=== PATIENT | male | born 1985 | race Caucasian/White ===

== ENCOUNTER → 2024-11-30 | Outpatient (CLI) | payer SELFPAY ==
[2024-11-30 17:50] LABS: Absolute Lymphocyte Count 2.89 X10^3/uL (0.83-4.51); Absolute Neutrophil Count 4.8 X10^3/uL (2.0-7.7); Basophil# 0.07 X10^3/uL; Basophil% 0.8 % (0-1); Eosinophil# 0.14 X10^3/uL; Eosinophils% 1.6 % (0-5); Hematocrit 44.6 % (40-54); Hemoglobin 14.9 g/dL (13.0-16.5); Lymphocyte # 2.89 X10^3/ul (0.83-4.51); Lymphocyte % 32.9 % (19-41); Mean Corp Hgb Conc 33.4 g/dL (32-36); Mean Corpuscular Hgb 28.7 pg (27.0-32.0); Mean Corpuscular Volume 85.9 fL (80-94); Mean Platelet Vol. 10.8 fl (6.2-12.0); Monocyte# 0.88 X10^3/uL; NRBC Flagged by Analyzer 0 % (0-5); Neutrophil # 4.76 X10^3/uL (2.7-7.7); Neutrophil % 54.2 % (47-70); Platelet Count 345 K/mm3 (150-450); RBC Distribution Width SD 37.7 fl (35.1-43.9); Red Blood Count 5.19 M/mm3 (4.6-6.2); White Blood Count 8.8 K/mm3 (4.4-11.0)
[2024-11-30 17:57] LABS: Color, Urine Yellow (Yellow); Glucose, Dipstick Normal (Normal); Ketone-Dipstick Negative (Negative); Leukocyte Esterase-Dipstick Negative /ul (Negative); Nitrite-Dipstick Negative (Negative); Occult Blood-Urine Negative /ul (Negative); Protein-Dipstick 30 mg/dl (Negative); Specific Gravity, Urine 1.025 (1.002-1.030); Urine Bilirubin Dipstick Negative (Negative); Urine Clarity Clear (Clear); Urine Urobilinogen Normal (Normal)
[2024-11-30 19:24] LABS: ALB/GLOB Ratio 1.6 RATIO (0.9-2.4); AST(SGOT) 36 U/L (<=37); Alanine Aminotransfer ALT/SGPT 54 U/L (<=46); Albumin, Serum 4.4 g/dL (3.5-5.0); Alkaline Phosphatase 60 U/L (40-129); Anion Gap 13 (5-15); BUN 16 mg/dL (4-19); Calcium 9.9 mg/dL (7.6-11.0); Carbon Dioxide 23.9 mmol/L (22.0-29.0); Chloride 103 mmol/L (96-108); EST Glomerular Filtration Rate 102 (>60); Globulin 2.8 g/dL (2.2-4.2); Glucose 108 mg/dL (70-99); Magnesium 2.4 mg/dL (1.5-2.2); Protein, Total 7.2 g/dL (5.9-8.4); Sodium Level 139 mmol/L (133-145); Total Bilirubin 0.46 mg/dL (0.00-1.30)
[2024-12-02 01:13] LABS: Hepatitis B Surface Antibody REAC; Hepatitis B Surface Antigen Nonreactive (Nonreactive); Hepatitis C Antibody Nonreactive (Nonreactive)
[2024-12-02 01:24] LABS: Cholesterol 202 mg/dL (<=200); High Density Lipoprotein 40 mg/dL; Low Density Lipoprotein Calc. 120 mg/dL; Triglycerides 213 mg/dL; Very Low Density Lipoprotein 43 mg/dL (5-40); cholesterol:hdl ratio screen 5.06
== END | disposition home or self-care (01) ==
LOC: MFPLAB 15:27
PROVIDERS: PCP Family Medicine; Referring Provider Family Medicine; Visit Provider Family Medicine
DX: R03.0 Elevated blood-pressure reading, without diagnosis of hypertension (principal); E66.01 Morbid (severe) obesity due to excess calories; R73.09 Other abnormal glucose; R94.5 Abnormal results of liver function studies
CPT/HCPCS: 36415; 80053; 80061; 81002; 83036; 83735; 85025; 86706; 86803; 87340

== ENCOUNTER → 2025-03-01 | Outpatient (CLI) | payer OTHER, SELFPAY ==
[2025-03-01 18:21] LABS: ALB/GLOB Ratio 1.7 RATIO (0.9-2.4); AST(SGOT) 30 U/L (<=37); Alanine Aminotransfer ALT/SGPT 45 U/L (<=46); Albumin, Serum 4.6 g/dL (3.5-5.0); Alkaline Phosphatase 65 U/L (40-129); Anion Gap 11 (5-15); BUN 16 mg/dL (4-19); BUN/Creat Ratio 14.3 RATIO (10-20); Carbon Dioxide 26.4 mmol/L (21.0-32.0); Chloride 102 mmol/L (98-108); Creatinine, Serum 1.15 mg/dL (0.70-1.20); EST Glomerular Filtration Rate 83 (>60); Globulin 2.7 g/dL (2.2-4.2); Glucose 89 mg/dL (70-99); Potassium 3.8 mmol/L (3.3-5.1); Protein, Total 7.3 g/dL (5.9-8.4); Sodium Level 140 mmol/L (133-145); Total Bilirubin 0.69 mg/dL (0.00-1.30)
[2025-03-01 18:24] LABS: Hemoglobin A1c 5.4 % (<=5.6)
== END | disposition home or self-care (01) ==
LOC: MFPLAB 15:04
PROVIDERS: PCP Family Medicine; Referring Provider Family Medicine; Visit Provider Family Medicine
DX: R79.89 Other specified abnormal findings of blood chemistry (principal); R73.02 Impaired glucose tolerance (oral)
CPT/HCPCS: 36415; 80053; 83036

== ENCOUNTER → 2025-06-28 | Outpatient (CLI) | payer OTHER, SELFPAY ==
[2025-06-28 18:45] LABS: AST(SGOT) 25 U/L (<=37); Alanine Aminotransfer ALT/SGPT 36 U/L (<=46); Albumin, Serum 4.5 g/dL (3.5-5.0); Alkaline Phosphatase 56 U/L (40-129); Anion Gap 14 (5-15); BUN 12 mg/dL (4-19); BUN/Creat Ratio 12.6 RATIO (10-20); Calcium,Total 9.5 mg/dL (7.6-11.0); Carbon Dioxide 21.4 mmol/L (21.0-32.0); Chloride 103 mmol/L (98-108); Cholesterol 185 mg/dL (<=200); Globulin 2.5 g/dL (2.2-4.2); Glucose 87 mg/dL (70-99); Low Density Lipoprotein Calc. 114 mg/dL; Potassium 3.8 mmol/L (3.3-5.1); Triglycerides 141 mg/dL; Very Low Density Lipoprotein 28 mg/dL (5-40); cholesterol:hdl ratio screen 4.31
[2025-06-28 18:52] LABS: Hematocrit 44.4 % (40-54); Hemoglobin 15.0 g/dL (13.0-16.5); Immature Granulocytes Count 0.040 X10^3/uL (0.0-0.0); Mean Corp Hgb Conc 33.8 g/dL (32-36); Mean Corpuscular Volume 84.7 fL (80-94); Mean Platelet Vol. 10.8 fl (6.2-12.0); NRBC Flagged by Analyzer 0 % (0-5); Platelet Count 325 K/mm3 (150-450); RBC Distribution Width CV 12.3 % (11.6-14.6); RBC Distribution Width SD 37.3 fl (35.1-43.9); Red Blood Count 5.24 M/mm3 (4.6-6.2); White Blood Count 8.4 K/mm3 (4.4-11.0)
== END | disposition home or self-care (01) ==
LOC: MFPLAB 14:12
PROVIDERS: PCP Family Medicine; Visit Provider Family Medicine
DX: R73.02 Impaired glucose tolerance (oral) (principal); E66.01 Morbid (severe) obesity due to excess calories
CPT/HCPCS: 36415; 80053; 80061; 83036; 85025

== ENCOUNTER → 2025-09-13 | Outpatient (CLI) | payer OTHER, SELFPAY ==
[2025-09-13 17:43] LABS: Hematocrit 45.1 % (40-54); Hemoglobin 15.2 g/dL (13.0-16.5); Immature Granulocytes Count 0.040 X10^3/uL (0.0-0.0); Mean Corp Hgb Conc 33.7 g/dL (32-36); Mean Corpuscular Volume 84.1 fL (80-94); Mean Platelet Vol. 10.7 fl (6.2-12.0); NRBC Flagged by Analyzer 0 % (0-5); Platelet Count 351 K/mm3 (150-450); RBC Distribution Width CV 12.0 % (11.6-14.6); RBC Distribution Width SD 36.2 fl (35.1-43.9); Red Blood Count 5.36 M/mm3 (4.6-6.2); White Blood Count 9.3 K/mm3 (4.4-11.0)
[2025-09-13 18:16] LABS: AST(SGOT) 26 U/L (<=37); Alanine Aminotransfer ALT/SGPT 33 U/L (<=46); Albumin, Serum 4.5 g/dL (3.5-5.0); Alkaline Phosphatase 56 U/L (40-129); Anion Gap 13 (5-15); BUN 13 mg/dL (4-19); BUN/Creat Ratio 12.1 RATIO (10-20); Calcium,Total 9.6 mg/dL (7.6-11.0); Carbon Dioxide 22.9 mmol/L (21.0-32.0); Chloride 100 mmol/L (98-108); Cholesterol 209 mg/dL (<=200); Globulin 2.7 g/dL (2.2-4.2); Glucose 111 mg/dL (70-99); Low Density Lipoprotein Calc. 140 mg/dL; Potassium 3.2 mmol/L (3.3-5.1); Triglycerides 175 mg/dL; Very Low Density Lipoprotein 35 mg/dL (5-40); cholesterol:hdl ratio screen 5.53
== END | disposition home or self-care (01) ==
LOC: MFPLAB 14:38
PROVIDERS: PCP Family Medicine; Visit Provider Family Medicine
DX: I10 Essential (primary) hypertension (principal); R73.02 Impaired glucose tolerance (oral)
CPT/HCPCS: 36415; 80053; 80061; 83036; 85025

== ENCOUNTER → 2025-09-26 | Outpatient (CLI) | payer OTHER, SELFPAY ==
--- OUTSIDE RECORDS SUMMARY | 2025-09-26 14:22 | XMS RPT_ITS | CCD ---
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 Tylor Pitts Primary Care Provider Herber CAMPOS, Dr. Tylor Pitts Attending Provider Dr. Tylor Craven MD Referring Provider Dr. Tylor Craven MD Primary Care Physician Herber CAMPOS, Dr. Tylor Pitts Attending Physician Tylor Craven Attending Unavailable Tylor Craven Primary Care Unavailable Tylor Craven Primary Care Unavailable Tylor Craven Referring Unavailable Tylor Craven Attending Unavailable Tylor Craven Primary Care Unavailable Tylor Craven Referring Unavailable Tylor Craven Attending Unavailable Medications Current Medications Medication Drug Class(es) Dates Sig (Normalized) Sig (Original) amoxicillin 875 mg / clavulanate 125 mg oral tablet (1 source) Penicillin-class Antibacterial Start: 11-14-2024 End: 11-21-2024 take 1 tablet by mouth twice daily amoxicillin-clav ulanate potassium (AUGMENTIN) 875-125 mg per tablet Take 1 tablet by mouth two times a day for 7 days. 14 tablet 11/14/2024 11/21/2024 Active ciprofloxacin 3 mg/ml / dexamethasone 1 mg/ml otic suspension (1 source) Corticosteroid, Quinolone Antimicrobial Start: 03-05-2015 ciprofloxacin-de xamethasone (CIPRODEX) otic suspension Indications: Right otitis externa Use 4 Drops in the right ear twice daily. 1 Bottle 0 03/05/2015 Active Problems Active Problems Problem Classification Problem Date Documented Da te Episodic/Chronic Diabetes mellitus without complication (1 source) Impaired glucose tolerance (oral); Translations: [Impaired glucose tolerance (oral)] Onset: 08-04-2025 Episodic Other upper respiratory infections (1 source) Chronic sinusitis, unspecified; Translations: [Unspecified sinusitis (chronic)] 11-14-2024 Chronic Other upper respiratory infections (1 source) Pharyngitis; Translations: [Acute pharyngitis, unspecified] 11-14-2024 Episodic Past or Other Problems Problem Classification Problem Date Documented Da te Episodic/Chronic Other circulatory disease (1 source) Elevated blood-pressure reading, without diagnosis of hypertension; Translations: [Elevated blood-pressure reading, without diagnosis of hypertension] Onset: 12-14-2024 Episodic Other screening for suspected conditions (not mental disorders or infectious disease) (1 source) Other specified abnormal findings of blood chemistry; Translations: [Other specified abnormal findings of blood chemistry] Onset: 04-18-2025 Episodic Results Test Name Value Interpretation Reference Range Facility Absolute lymphocyte countOrd ered By: Tylor Craven on 06-28-2025 Lymphocytes Auto (Unsp spec) [#/Vol] 2.97 10*3/uL 0.83-4.51 [facility] Absolute neutrophil countOrd ered By: Tylor Craven on 06-28-2025 Neutrophils (Bld) [#/Vol] 4.4 10*3/uL 2.0-7.7 [facility] Anion gap in Serum or Plasma Ordered By: Tylor Craven on 06-28-2025 Anion gap [Moles/Vol] 14 mmol/L 5-15 [facility] Automated lymphocyte count a s percentage of total leukocytesOrdered By: Tylor Craven on 06-28-2025 Lymphocytes/100 WBC Auto (Unsp spec) 35.3 % - [facility] BUN/creatinine ratioOrdered By: Tylor Craven on 06-28-2025 Urea nitrogen/Creatinine [Mass ratio] 12.6 mg/mg 10- [facility] Basophil percentageOrdered B y: Tylor Craven on 06-28-2025 Basophils/100 WBC (Bld) 1.1 % High 0-1 [facility] Bilirubin, totalOrdered By: Tylor Craven on 06-28-2025 Bilirubin [Mass/Vol] 0.73 mg/dL 0.00-1.30 [facility] CBC W/Diff, Automatedon 06-06 Absolute Lymph 2.97 X10 3/uL Normal 0.83-4.51 [facility] Comment on above: Order Comment: Order Date: 06/28/25 Order Info: 0184-1 - CBCD Performed By: #### L 500.4100, L500.4050, L501.9985, L100.0100 #### [facility] [address] [place], [address] Absolute Neut 4.4 X10 3/uL Normal 2.0-7.7 [facility] Comment on above: Order Comment: Order Date: 06/28/25 Order Info: 0184- - CBCD Performed By: #### L 500.4100, L500.4050, L501.9985, L100.0100 #### [facility] [address] [place], [address] Basophils/100 WBC (Bld) 1.1 % High 0-1 [facility] Comment on above: Order Comment: Order Date: 06/28/25 Order Info: 0184- - CBCD Performed By: #### L 500.4100, L500.4050, L501.9985, L100.0100 #### [facility] [address] [place], [address] Eosinophils/100 WBC (Bld) 3.0 % Normal 0-5 [facility] Comment on above: Order Comment: Order Date: 06/28/25 Order Info: 0184-1 - CBCD Performed By: #### L 500.4100, L500.4050, L501.9985, L100.0100 #### [facility] [address] [place], [address] Erythrocyte distribution width (RBC) [Ratio] 12.3 % Normal 11.6-14.6 [facility] Comment on above: Order Comment: Order Date: 06/28/25 Order Info: 0184-1 - CBCD Performed By: #### L 500.4100, L500.4050, L501.9985, L100.0100 #### [facility] [address] [place], [address] Hematocrit (Bld) [Volume fraction] 44.4 % Normal 40-54 [facility] Comment on above: Order Comment: Order Date: 06/28/25 Order Info: 0184-1 - CBCD Performed By: #### L 500.4100, L500.4050, L501.9985, L100.0100 #### [facility] [address] [place], [address] Hemoglobin (Bld) [Mass/Vol] 15.0 g/dL Normal 13.0-16.5 [facility] Comment on above: Order Comment: Order Date: 06/28/25 Order Info: 0184-1 - CBCD Performed By: #### L 500.4100, L500.4050, L501.9985, L100.0100 #### [facility] [address] [place], [address] IG% 0.500 Normal 0.0-0.9 [facility] Comment on above: Order Comment: Order Date: 06/28/25 Order Info: 0184-1 - CBCD Result Comment: IG% - Immature Granulocytes (promyelocytes, myelocytes and metamyelocytes) > 1% indicates that a LEFT SHIFT is Present. Performed By: #### L 500.4100, L500.4050, L501.9985, L100.0100 #### [facility] [address] [place], [address] Lymphocytes/100 WBC (Bld) 35.3 % Normal 19-41 [facility] Comment on above: Order Comment: Order Date: 06/28/25 Order Info: 0184-1 - CBCD Performed By: #### L 500.4100, L500.4050, L501.9985, L100.0100 #### [facility] [address] [place], [address] MCH (RBC) [Entitic mass] 28.6 pg Normal 27.0-32.0 [facility] Comment on above: Order Comment: Order Date: 06/28/25 Order Info: 0184-1 - CBCD Performed By: #### L 500.4100, L500.4050, L501.9985, L100.0100 #### [facility] [address] [place], [address] MCHC (RBC) [Mass/Vol] 33.8 g/dL Normal 32-36 [facility] Comment on above: Order Comment: Order Date: 06/28/25 Order Info: 0184-1 - CBCD Performed By: #### L 500.4100, L500.4050, L501.9985, L100.0100 #### [facility] [address] [place], [address] MCV (RBC) [Entitic vol] 84.7 fL Normal 80-94 [facility] Comment on above: Order Comment: Order Date: 06/28/25 Order Info: 0184- - CBCD Performed By: #### L 500.4100, L500.4050, L501.9985, L100.0100 #### [facility] [address] [place], [address] Monocytes/100 WBC (Bld) 8.3 % Normal 0-10 [facility] Comment on above: Order Comment: Order Date: 06/28/25 Order Info: 0184-1 - CBCD Performed By: #### L 500.4100, L500.4050, L501.9985, L100.0100 #### [facility] [address] [place], [address] Neutrophils/100 WBC (Bld) 51.8 % Normal 47-70 [facility] Comment on above: Order Comment: Order Date: 06/28/25 Order Info: 0184-1 - CBCD Performed By: #### L 500.4100, L500.4050, L501.9985, L100.0100 #### [facility] [address] [place], [address] Nucleated RBC (Bld) [#/Vol] 0 10*3/uL Normal 0-5 [facility] Comment on above: Order Comment: Order Date: 06/28/25 Order Info: 0184-1 - CBCD Performed By: #### L 500.4100, L500.4050, L501.9985, L100.0100 #### [facility] [address] [place], [address] Platelet mean volume (Bld) [Entitic vol] 10.8 fL Normal 6.2-12.0 [facility] Comment on above: Order Comment: Order Date: 06/28/25 Order Info: 0184-1 - CBCD Performed By: #### L 500.4100, L500.4050, L501.9985, L100.0100 #### [facility] [address] [place], [address] Platelets (Bld) [#/Vol] 325 10*3/uL Normal 150-450 [facility] Comment on above: Order Comment: Order Date: 06/28/25 Order Info: 0184-1 - CBCD Performed By: #### L 500.4100, L500.4050, L501.9985, L100.0100 #### [facility] [address] [place], [address] RBC (Bld) [#/Vol] 5.24 10*6/uL Normal 4.6-6.2 [facility] Comment on above: Order Comment: Order Date: 06/28/25 Order Info: 0184-1 - CBCD Performed By: #### L 500.4100, L500.4050, L501.9985, L100.0100 #### [facility] [address] [place], [address] RDW SD 37.3 fl Normal 35.1-43.9 [facility] Comment on above: Order Comment: Order Date: 06/28/25 Order Info: 0184-1 - CBCD Performed By: #### L 500.4100, L500.4050, L501.9985, L100.0100 #### [facility] [address] [place], [place], [id number] WBC (Bld) [#/Vol] 8.4 10*3/uL Normal 4.4-11.0 [facility] Comment on above: Order Comment: Order Date: 06/28/25 Order Info: 0184-1 - CBCD Performed By: #### L 500.4100, L500.4050, L501.9985, L100.0100 #### [facility] [address] [place], [place], [id number] Calculated very low density lipoprotein (VLDL) cholesterol measurementOrdered By: Tylor Craven on 06-28-2025 Calculated very low density lipoprotein (VLDL) cholesterol measurement 28 mg/dL 5-40 [facility] Carbon dioxide, total [Moles /volume] in Central venous bloodOrdered By: Tylor Cravne on 06-28-2025 CO2 [Moles/Vol] 21.4 mmol/L 21.0-32.0 [facility] Chloride assayOrdered By: Cesilia Craven on 06-28-2025 Chloride [Moles/Vol] 103 mmol/L 98-108 [facility] Comprehensive Metabolic Prof ilon 06-28-2025 Albumin [Mass/Vol] 4.5 g/dL Normal 3.5-5.0 [facility] Comment on above: Order Comment: CLEAN CATCH Performed By: #### L 501.9985, L500.4050, L3890.6202, L3890.6301, L3890.6102, L400.2010, L100.0100, L500.4100, L501.5200 #### [facility] [address] [place], [place], [id number] Albumin/Globulin [Mass ratio] 1.8 {ratio} Normal 0.9-2.4 [facility] Comment on above: Order Comment: CLEAN CATCH Performed By: #### L 501.9985, L500.4050, L3890.6202, L3890.6301, L3890.6102, L400.2011, L100.0100, L500.4100, L501.5200 #### [facility] [address] [place], [address] ALK PHOS 56 U/L Normal 40-129 [facility] Comment on above: Order Comment: CLEAN CATCH Performed By: #### L 501.9985, L500.4050, L3890.6202, L3890.6301, L3890.6102, L400.2010, L100.0100, L500.4100, L501.5200 #### [facility] [address] [place], [place], [phone] ALT [Catalytic activity/Vol] 36 U/L Normal <=46 [facility] Comment on above: Order Comment: CLEAN CATCH Performed By: #### L 501.9985, L500.4050, L3890.6202, L3890.6301, L3890.6102, L400.2010, L100.0100, L500.4100, L501.5200 #### [facility] [address] [place], [address] AST [Catalytic activity/Vol] 25 U/L Normal <=37 [facility] Comment on above: Order Comment: CLEAN CATCH Performed By: #### L 501.9985, L500.4050, L3890.6202, L3890.6301, L3890.6102, L400.2010, L100.0100, L500.4100, L501.5200 #### [facility] [address] [place], [address] Bilirubin [Mass/Vol] 0.73 mg/dL Normal 0.00-1.30 [facility] Comment on above: Order Comment: CLEAN CATCH Performed By: #### L 501.9985, L500.4050, L3890.6202, L3890.6301, L3890.6102, L400.2011, L100.0100, L500.4100, L501.5200 #### [facility] [address] [place], [address] BUN/CRE 12.6 RATIO Normal 10-20 [facility] Comment on above: Order Comment: CLEAN CATCH Performed By: #### L 501.9985, L500.4050, L3890.6202, L3890.6301, L3890.6102, L400.2010, L100.0100, L500.4100, L501.5200 #### [facility] [address] [place], [place], [phone] Calcium [Mass/Vol] 9.5 mg/dL Normal 7.6-11.0 [facility] Comment on above: Order Comment: CLEAN CATCH Performed By: #### L 501.9985, L500.4050, L3890.6202, L3890.6301, L3890.6102, L400.2010, L100.0100, L500.4100, L501.5200 #### [facility] [address] [place], [place], [phone] Chloride [Moles/Vol] 103 mmol/L Normal 98-108 [facility] Comment on above: Order Comment: CLEAN CATCH Performed By: #### L 501.9985, L500.4050, L3890.6202, L3890.6301, L3890.6102, L400.2010, L100.0100, L500.4100, L501.5200 #### [facility] [address] [place], [address] CO2 [Moles/Vol] 21.4 mmol/L Normal 21.0-32.0 [facility] Comment on above: Order Comment: CLEAN CATCH Performed By: #### L 501.9985, L500.4050, L3890.6202, L3890.6301, L3890.6102, L400.2010, L100.0100, L500.4100, L501.5200 #### [facility] [address] [place], [place], [phone] Creatinine [Mass/Vol] 0.95 mg/dL Normal 0.70-1.20 [facility] Comment on above: Order Comment: CLEAN CATCH Performed By: #### L 501.9985, L500.4050, L3890.6202, L3890.6301, L3890.6102, L400.2010, L100.0100, L500.4100, L501.5200 #### [facility] [address] [place], [address] GAP 14 Normal 5-15 [facility] Comment on above: Order Comment: CLEAN CATCH Performed By: #### L 501.9985, L500.4050, L3890.6202, L3890.6301, L3890.6102, L400.2010, L100.0100, L500.4100, L501.5200 #### [facility] [address] [place], [place], [phone] GFR/1.73 sq M.predicted among non-blacks MDRD (S/P/Bld) [Vol rate/Area] 104 mL/min/{1.73_m2} Normal >60 [facility] Comment on above: Order Comment: CLEAN CATCH Result Comment: mL/m in/1.73m2 CKD-EPI Creatinine Equation (2020) Performed By: #### L 501.9985, L500.4050, L3890.6202, L3890.6301, L3890.6102, L400.2010, L100.0100, L500.4100, L501.5200 #### [facility] [address] [place], [address] Globulin (S) [Mass/Vol] 2.5 g/dL Normal 2.2-4.2 [facility] Comment on above: Order Comment: CLEAN CATCH Performed By: #### L 501.9985, L500.4050, L3890.6202, L3890.6301, L3890.6102, L400.2010, L100.0100, L500.4100, L501.5200 #### [facility] [address] [place], [address] Glucose [Mass/Vol] 87 mg/dL Normal 70-99 [facility] Comment on above: Order Comment: CLEAN CATCH Performed By: #### L 501.9985, L500.4050, L3890.6202, L3890.6301, L3890.6102, L400.2010, L100.0100, L500.4100, L501.5200 #### [facility] [address] [place], [address] Potassium [Moles/Vol] 3.8 mmol/L Normal 3.3-5.1 [facility] Comment on above: Order Comment: CLEAN CATCH Performed By: #### L 501.9985, L500.4050, L3890.6202, L3890.6301, L3890.6102, L400.2010, L100.0100, L500.4100, L501.5200 #### [facility] [address] [place], [address] Sodium [Moles/Vol] 138 mmol/L Normal 133-145 [facility] Comment on above: Order Comment: CLEAN CATCH Performed By: #### L 501.9985, L500.4050, L3890.6202, L3890.6301, L3890.6102, L400.2010, L100.0100, L500.4100, L501.5200 #### [facility] [address] [place], [address] T PROT 7.1 g/dL Normal 5.9-8.4 [facility] Comment on above: Order Comment: CLEAN CATCH Performed By: #### L 501.9985, L500.4050, L3890.6202, L3890.6301, L3890.6102, L400.2010, L100.0100, L500.4100, L501.5200 #### [facility] [address], [address] Urea nitrogen [Mass/Vol] 12 mg/dL Normal 4-19 [facility] Comment on above: Order Comment: CLEAN CATCH Performed By: #### L 501.9985, L500.4050, L3890.6202, L3890.6301, L3890.6102, L400.2010, L100.0100, L500.4100, L501.5200 #### [facility] [address] [facility] [place], [address] Eosinophil percentageOrdered By: Tylor Craven on 06-28-2025 Eosinophils/100 WBC (Bld) 3.0 % 0-5 [facility] Erythrocyte distribution wid th ratioOrdered By: Tylor Craven on 06-28-2025 Erythrocyte distribution width (RBC) [Ratio] 12.3 % 11.6-14.6 [facility] Erythrocyte distribution wid th standard deviationOrdered By: Tylor Craven on 06-28-2025 Erythrocyte distribution width (RBC) [Ratio] 37.3 fl 35.1-43.9 [facility] Glomerular filtration rate ( GFR) estimation/1.73 sq m using serum, plasma, or whole bOrdered By: Tylor Craven on 06-28-2025 GFR/1.73 sq M.predicted among non-blacks MDRD (S/P/Bld) [Vol rate/Area] 104 mL/min/{1.73_m2} >60 [facility] Comment on above: mL/min/1.73m2 CKD-EP I Creatinine Equation (2020) Hematocrit Auto (Bld) [Volum e fraction]Ordered By: Tylor Craven on 06-28-2025 Hematocrit (Bld) [Volume fraction] 44.4 % 40-54 [facility] Hemoglobin A1con 06-28-2025 HbA1c (Bld) [Mass fraction] 5.4 % Normal <=5.6 [facility] Comment on above: Order Comment: CLEAN CATCH Result Comment: Norm al < 5.7 % Prediabetic 5.7 - 6.4 % Diabetic >or= 6.5 % Please note range changes. Performed By: #### L 501.9985, L500.4050, L3890.6202, L3890.6301, L3890.6102, L400.2011, L100.0100, L500.4100, L501.5200 #### [facility] [address] [place], [address] Hemoglobin A1c percentageOrd ered By: Tylor Craven on 06-28-2025 HbA1c (Bld) [Mass fraction] 5.4 % <5.7 [facility] Comment on above: Normal < 5.7 % Predi abetic 5.7 - 6.4 % Diabetic >or= 6.5 % Please note range changes. Hemoglobin measurementOrdere d By: Tylor Craven on 06-28-2025 Hemoglobin (Bld) [Mass/Vol] 15.0 g/dL 13.0-16.5 [facility] Immature granulocytes/100 WB C Auto (Bld)Ordered By: Tylor Craven on 06-28-2025 Immature granulocytes/100 WBC (Bld) 0.500 % 0.0-0.9 [facility] Comment on above: IG% - Immature Granu locytes (promyelocytes, myelocytes and metamyelocytes) > 1% indicates that a LEFT SHIFT is Present. LDL calc ser/plasOrdered By: Tylor Craven on 06-28-2025 Cholesterol in LDL [Mass/Vol] 114 mg/dL [facility] Comment on above: Wivpgfoiyu=308-135 m g/dL & Higher Cnxl=038 mg/dL or greaterFriedwald Equation for LDL-C Laboratory - Chemistry and C hemistry - challengeOrdered By: Tylor Craven on 06-28-2025 AST [Catalytic activity/Vol] 25 U/L <38 [facility] Lipid Profileon 06-28-2025 CHOL:HDL 4.31 Normal [facility] Comment on above: Order Comment: CLEAN CATCH Performed By: #### L 501.9985, L500.4050, L3890.6202, L3890.6301, L3890.6102, L400.2010, L100.0100, L500.4100, L501.5200 #### [facility] [address] [place], [address] Cholesterol [Mass/Vol] 185 mg/dL Normal <=200 [facility] Comment on above: Order Comment: CLEAN CATCH Result Comment: Chol esterol level, Desirable <200 mg/dL Borderline high cholesterol 200-239 mg/dL High cholesterol >=240 mg/dL Recommendations of the NCEP Adult Treatment Panel for the following risk-cutoff thresholds for the [place] population. Performed By: #### L 501.9985, L500.4050, L3890.6202, L3890.6301, L3890.6102, L400.2010, L100.0100, L500.4100, L501.5200 #### [facility] [address] [place], [place], [phone] ([phone] Cholesterol in HDL [Mass/Vol] 43 mg/dL Normal [facility] Comment on above: Order Comment: CLEAN CATCH Result Comment: Mary onal Cholesterol Education Program (NCEP) guidelines: <40 mg/dL: Low HDL-cholesterol (major risk factor for CHD) >= 60 mg/dL: High HDL-cholesterol (negative risk factor for CHD) HDL-cholesterol is affected by a number of factors, e.g. smoking, exercise, hormones, sex and age. Performed By: #### L 501.9985, L500.4050, L3890.6202, L3890.6301, L3890.6102, L400.2010, L100.0100, L500.4100, L501.5200 #### [facility] [address] [place], [address] Cholesterol in LDL [Mass/Vol] 114 mg/dL Normal [facility] Comment on above: Order Comment: CLEAN CATCH Result Comment: Bord aufjth=775-321 mg/dL Higher Frpt=668 mg/dL or greater Friedwald Equation for LDL-C Performed By: #### L 501.9985, L500.4050, L3890.6202, L3890.6301, L3890.6102, L400.2010, L100.0100, L500.4100, L501.5200 #### [facility] [address] [place], [address] Cholesterol in VLDL [Mass/Vol] 28 mg/dL Normal 5-40 [facility] Comment on above: Order Comment: CLEAN CATCH Performed By: #### L 501.9985, L500.4050, L3890.6202, L3890.6301, L3890.6102, L400.2010, L100.0100, L500.4100, L501.5200 #### [facility] [address] [place], [address] Triglyceride [Mass/Vol] 141 mg/dL Normal [facility] Comment on above: Order Comment: CLEAN CATCH Result Comment: The drugs N-Acetylcysteine and Metamizole may falsely depress this assay. Normal range: <150 mg/dL Borderline High: 150-199 mg/dL High: 200-499 mg/dL Very High: >500 mg/dL Performed By: #### L 501.9985, L500.4050, L3890.6202, L3890.6301, L3890.6102, L400.2010, L100.0100, L500.4100, L501.5200 #### [facility] [address] [place], [place], [id number] MCV (mean corpuscular volume ) determinationOrdered By: Tylor Craven on 06-28-2025 MCV (RBC) [Entitic vol] 84.7 fL 80-94 [facility] Mean corpuscular hemoglobin (MCH) determinationOrdered By: Tylor Craven on 06-28-2025 MCH (RBC) [Entitic mass] 28.6 pg 27.0-32.0 [facility] Mean corpuscular hemoglobin concentration (MCHC) determinationOrdered By: Tylor Craven on 06-28-2025 MCHC (RBC) [Mass/Vol] 33.8 g/dL 32-36 [facility] Mean platelet volume determi nationOrdered By: Tylor Craven on 06-28-2025 Platelet mean volume (Bld) [Entitic vol] 10.8 fL 6.2-12.0 [facility] Monocyte percentageOrdered B y: Tylor Craven on 06-28-2025 Monocytes/100 WBC (Bld) 8.3 % 0-10 [facility] Neutrophil percentageOrdered By: Tylor Craven on 06-28-2025 Neutrophils/100 WBC (Bld) 51.8 % 47-70 [facility] Nucleated red blood cell per centageOrdered By: Tylor Craven on 06-28-2025 Nucleated RBC/100 WBC (Bld) [Ratio] 0 % 0-5 [facility] Platelet countOrdered By: Cesilia Craven on 06-28-2025 Platelets (Bld) [#/Vol] 325 10*3/uL 150-450 [facility] Potassium measurement (mass/ volume)Ordered By: Tylor Craven on 06-28-2025 Potassium (Unsp spec) [Mass/Vol] 3.8 mmol/L 3.3-5.1 [facility] RBC Auto (Bld) [#/Vol]Ordere d By: Tylor Craven on 06-28-2025 RBC (Bld) [#/Vol] 5.24 10*6/uL 4.6-6.2 [facility] Screening total cholesterol/ high density lipoprotein (HDL) cholesterol ratioOrdered By: Tylor Craven on 06-28-2025 Cholesterol.total/Cholest lyn in HDL [Mass ratio] 4.31 {ratio} [facility] Serum creatinine measurement (mass/volume)Ordered By: Tylor Craven on 06-28-2025 Creatinine [Mass/Vol] 0.95 mg/dL 0.70-1.20 [facility] Serum globulin measurementOr dered By: Tylor Craven on 06-28-2025 Globulin (S) [Mass/Vol] 2.5 g/dL 2.2-4.2 [facility] Serum glucose measurement (m ass/volume)Ordered By: Tylor Craven on 06-28-2025 Glucose [Mass/Vol] 87 mg/dL 70-99 [facility] Serum or plasma alanine glez otransferase (ALT) measurementOrdered By: Tylor Craven on 06-28-2025 ALT [Catalytic activity/Vol] 36 U/L <47 [facility] Serum or plasma albumin lorna urement (mass/volume)Ordered By: Tylor Craven on 06-28-2025 Albumin [Mass/Vol] 4.5 g/dL 3.5-5.0 [facility] Serum or plasma albumin/glob ulin mass ratioOrdered By: Tylor Craven on 06-28-2025 Albumin/Globulin [Mass ratio] 1.8 {ratio} 0.9-2.4 [facility] Serum or plasma alkaline isidra sphatase measurementOrdered By: Tylor Craven on 06-28-2025 ALP [Catalytic activity/Vol] 56 U/L 40-129 [facility] Serum or plasma calcium lorna urement (mass/volume)Ordered By: Tylor Craven on 06-28-2025 Calcium [Mass/Vol] 9.5 mg/dL 7.6-11.0 [facility] Serum or plasma cholesterol in HDL measurement (mass/volume)Ordered By: Tylor Craven on 06-28-2025 Cholesterol in HDL [Mass/Vol] 43 mg/dL >40 [facility] Comment on above: National Cholesterol Education Program (NCEP) guidelines:<40 mg/dL: Low HDL-cholesterol (major risk factor for CHD)>= 60 mg/dL: High HDL-cholesterol (negative risk factor for CHD)HDL-cholesterol is affected by a number of factors, e.g. smoking, exercise, hormones, sex and age. Serum or plasma cholesterol measurement (mass/volume)Ordered By: Tylor Craven on 06-28-2025 Cholesterol [Mass/Vol] 185 mg/dL <201 [facility] Comment on above: Cholesterol level, D esirable <200 mg/dLBorderline high cholesterol 200-239 mg/dLHigh cholesterol >=240 mg/dLRecommendations of the NCEP Adult Treatment Panel for the following risk-cutoff thresholds for the [place] population. Serum or plasma urea nitroge n measurement (mass/volume)Ordered By: Tylor Craven on 06-28-2025 Urea nitrogen [Mass/Vol] 12 mg/dL 4-19 [facility] Sodium levelOrdered By: Tylor Craven on 06-28-2025 Sodium [Moles/Vol] 138 mmol/L 133-145 [facility] Total proteinOrdered By: Geoffrey Craven on 06-28-2025 Protein [Mass/Vol] 7.1 g/dL 5.9-8.4 [facility] Triglycerides measurementOrd ered By: Tylor Craven on 06-28-2025 Triglyceride [Mass/Vol] 141 mg/dL <199 [facility] Comment on above: The drugs N-Acetylcy steine and Metamizole may falsely depress this assay. Normal range: <150 mg/dLBorderline High: 150-199 mg/dLHigh: 200-499 mg/dLVery High: >500 mg/dL White blood cell (WBC) count Ordered By: Tylor Craven on 06-28-2025 WBC (Bld) [#/Vol] 8.4 10*3/uL 4.4-11.0 [facility] Anion gap in Serum or Plasma Ordered By: Tylor Craven on 03-01-2025 Anion gap [Moles/Vol] 11 mmol/L 5-15 [facility] BUN/creatinine ratioOrdered By: Tylor Craven on 03-01-2025 Urea nitrogen/Creatinine [Mass ratio] 14.3 mg/mg 10-20 [facility] Bilirubin, totalOrdered By: Tylor Craven on 03-01-2025 Bilirubin [Mass/Vol] 0.69 mg/dL 0.00-1.30 [facility] Carbon dioxide, total [Moles /volume] in Central venous bloodOrdered By: Tylor Craven on 03-01-2025 CO2 [Moles/Vol] 26.4 mmol/L 21.0-32.0 [facility] Chloride assayOrdered By: Cesilia Craven on 03-01-2025 Chloride [Moles/Vol] 102 mmol/L 98-108 [facility] Comprehensive Metabolic Prof ilon 03-01-2025 Albumin [Mass/Vol] 4.6 g/dL Normal 3.5-5.0 [facility] Comment on above: Order Comment: CLEAN CATCH Performed By: #### L 501.9985, L500.4050, L3890.6202, L3890.6301, L3890.6102, L400.2010, L100.0100, L500.4100, L501.5200 #### [facility] [address] [place], [address] Albumin/Globulin [Mass ratio] 1.7 {ratio} Normal 0.9-2.4 [facility] Comment on above: Order Comment: CLEAN CATCH Performed By: #### L 501.9985, L500.4050, L3890.6202, L3890.6301, L3890.6102, L400.2010, L100.0100, L500.4100, L501.5200 #### [facility] [address] [place], [place], [id number] ALK PHOS 65 U/L Normal 40-129 [facility] Comment on above: Order Comment: CLEAN CATCH Performed By: #### L 501.9985, L500.4050, L3890.6202, L3890.6301, L3890.6102, L400.2010, L100.0100, L500.4100, L501.5200 #### [facility] [address] [place], [address] ALT [Catalytic activity/Vol] 45 U/L Normal <=46 [facility] Comment on above: Order Comment: CLEAN CATCH Performed By: #### L 501.9985, L500.4050, L3890.6202, L3890.6301, L3890.6102, L400.2010, L100.0100, L500.4100, L501.5200 #### [facility] [address] [place], [address] AST [Catalytic activity/Vol] 30 U/L Normal <=37 [facility] Comment on above: Order Comment: CLEAN CATCH Performed By: #### L 501.9985, L500.4050, L3890.6202, L3890.6301, L3890.6102, L400.2010, L100.0100, L500.4100, L501.5200 #### [facility] [address] [place], [address] Bilirubin [Mass/Vol] 0.69 mg/dL Normal 0.00-1.30 [facility] Comment on above: Order Comment: CLEAN CATCH Performed By: #### L 501.9985, L500.4050, L3890.6202, L3890.6301, L3890.6102, L400.2010, L100.0100, L500.4100, L501.5200 #### [facility] [address] [place], [address] BUN/CRE 14.3 RATIO Normal 10-20 [facility] Comment on above: Order Comment: CLEAN CATCH Performed By: #### L 501.9985, L500.4050, L3890.6202, L3890.6301, L3890.6102, L400.2010, L100.0100, L500.4100, L501.5200 #### [facility] [address] [place], [address] Calcium [Mass/Vol] 10.0 mg/dL Normal 7.6-11.0 [facility] Comment on above: Order Comment: CLEAN CATCH Performed By: #### L 501.9985, L500.4050, L3890.6202, L3890.6301, L3890.6102, L400.2010, L100.0100, L500.4100, L501.5200 #### [facility] [address] [place], [address] Chloride [Moles/Vol] 102 mmol/L Normal 98-108 [facility] Comment on above: Order Comment: CLEAN CATCH Performed By: #### L 501.9985, L500.4050, L3890.6202, L3890.6301, L3890.6102, L400.2011, L100.0100, L500.4100, L501.5200 #### [facility] [address] [place], [address] CO2 [Moles/Vol] 26.4 mmol/L Normal 21.0-32.0 [facility] Comment on above: Order Comment: CLEAN CATCH Performed By: #### L 501.9985, L500.4050, L3890.6202, L3890.6301, L3890.6102, L400.2010, L100.0100, L500.4100, L501.5200 #### [facility] [address] [place], [address] Creatinine [Mass/Vol] 1.15 mg/dL Normal 0.70-1.20 [facility] Comment on above: Order Comment: CLEAN CATCH Performed By: #### L 501.9985, L500.4050, L3890.6202, L3890.6301, L3890.6102, L400.2010, L100.0100, L500.4100, L501.5200 #### [facility] [address] [place], [address] GAP 11 Normal 5-15 [facility] Comment on above: Order Comment: CLEAN CATCH Performed By: #### L 501.9985, L500.4050, L3890.6202, L3890.6301, L3890.6102, L400.2010, L100.0100, L500.4100, L501.5200 #### [facility] [address] [place], [address] GFR/1.73 sq M.predicted among non-blacks MDRD (S/P/Bld) [Vol rate/Area] 83 mL/min/{1.73_m2} Normal >60 [facility] Comment on above: Order Comment: CLEAN CATCH Result Comment: mL/m in/1.73m2 CKD-EPI Creatinine Equation (2020) Performed By: #### L 501.9985, L500.4050, L3890.6202, L3890.6301, L3890.6102, L400.2010, L100.0100, L500.4100, L501.5200 #### [facility] [address] [place], [address] Globulin (S) [Mass/Vol] 2.7 g/dL Normal 2.2-4.2 [facility] Comment on above: Order Comment: CLEAN CATCH Performed By: #### L 501.9985, L500.4050, L3890.6202, L3890.6301, L3890.6102, L400.2010, L100.0100, L500.4100, L501.5200 #### [facility] [address] [place], [address] Glucose [Mass/Vol] 89 mg/dL Normal 70-99 [facility] Comment on above: Order Comment: CLEAN CATCH Performed By: #### L 501.9985, L500.4050, L3890.6202, L3890.6301, L3890.6102, L400.2010, L100.0100, L500.4100, L501.5200 #### [facility] [address] [place], [address] Potassium [Moles/Vol] 3.8 mmol/L Normal 3.3-5.1 [facility] Comment on above: Order Comment: CLEAN CATCH Performed By: #### L 501.9985, L500.4050, L3890.6202, L3890.6301, L3890.6102, L400.2010, L100.0100, L500.4100, L501.5200 #### [facility] [address] [place], [place], [id number] (509) Sodium [Moles/Vol] 140 mmol/L Normal 133-145 [facility] Comment on above: Order Comment: CLEAN CATCH Performed By: #### L 501.9985, L500.4050, L3890.6202, L3890.6301, L3890.6102, L400.2010, L100.0100, L500.4100, L501.5200 #### [facility] [address] [place], [address] T PROT 7.3 g/dL Normal 5.9-8.4 [facility] Comment on above: Order Comment: CLEAN CATCH Performed By: #### L 501.9985, L500.4050, L3890.6202, L3890.6301, L3890.6102, L400.2010, L100.0100, L500.4100, L501.5200 #### [facility] [address] [place], [place], [id number] Urea nitrogen [Mass/Vol] 16 mg/dL Normal 4-19 [facility] Comment on above: Order Comment: CLEAN CATCH Performed By: #### L 501.9985, L500.4050, L3890.6202, L3890.6301, L3890.6102, L400.2010, L100.0100, L500.4100, L501.5200 #### [facility] [address] [place], [address] Glomerular filtration rate ( GFR) estimation/1.73 sq m using serum, plasma, or whole bOrdered By: Tylor Craven on 03-01-2025 GFR/1.73 sq M.predicted among non-blacks MDRD (S/P/Bld) [Vol rate/Area] 83 mL/min/{1.73_m2} >60 [facility] Comment on above: mL/min/1.73m2 CKD-EP I Creatinine Equation (2020) Hemoglobin A1con 03-01-2025 HbA1c (Bld) [Mass fraction] 5.4 % Normal <=5.6 [facility] Comment on above: Order Comment: CLEAN CATCH Result Comment: Norm al < 5.7 % Prediabetic 5.7 - 6.4 % Diabetic >or= 6.5 % Please note range changes. Performed By: #### L 501.9985, L500.4050, L3890.6202, L3890.6301, L3890.6102, L400.2011, L100.0100, L500.4100, L501.5200 #### [facility] [address] [place], [address] Hemoglobin A1c percentageOrd ered By: Tylor Craven on 03-01-2025 HbA1c (Bld) [Mass fraction] 5.4 % <5.7 [facility] Comment on above: Normal < 5.7 % Predi abetic 5.7 - 6.4 % Diabetic >or= 6.5 % Please note range changes. Laboratory - Chemistry and C hemistry - challengeOrdered By: Tylor Craven on 03-01-2025 AST [Catalytic activity/Vol] 30 U/L <38 [facility] Potassium measurement (mass/ volume)Ordered By: Tylor Craven on 03-01-2025 Potassium (Unsp spec) [Mass/Vol] 3.8 mmol/L 3.3-5.1 [facility] Serum creatinine measurement (mass/volume)Ordered By: Tylor Craven on 03-01-2025 Creatinine [Mass/Vol] 1.15 mg/dL 0.70-1.20 [facility] Serum globulin measurementOr dered By: Tylor Craven on 03-01-2025 Globulin (S) [Mass/Vol] 2.7 g/dL 2.2-4.2 [facility] Serum glucose measurement (m ass/volume)Ordered By: Tylor Craven on 03-01-2025 Glucose [Mass/Vol] 89 mg/dL 70-99 [facility] Serum or plasma alanine glez otransferase (ALT) measurementOrdered By: Tylor Craven on 03-01-2025 ALT [Catalytic activity/Vol] 45 U/L <47 [facility] Serum or plasma albumin lorna urement (mass/volume)Ordered By: Tylor Craven on 03-01-2025 Albumin [Mass/Vol] 4.6 g/dL 3.5-5.0 [facility] Serum or plasma albumin/glob ulin mass ratioOrdered By: Tylor Craven on 03-01-2025 Albumin/Globulin [Mass ratio] 1.7 {ratio} 0.9-2.4 [facility] Serum or plasma alkaline isidra sphatase measurementOrdered By: Tylor Craven on 03-01-2025 ALP [Catalytic activity/Vol] 65 U/L 40-129 [facility] Serum or plasma calcium lorna urement (mass/volume)Ordered By: Tylor Craven on 03-01-2025 Calcium [Mass/Vol] 10.0 mg/dL 7.6-11.0 [facility] Serum or plasma urea nitroge n measurement (mass/volume)Ordered By: Tylor Craven on 03-01-2025 Urea nitrogen [Mass/Vol] 16 mg/dL 4-19 [facility] Sodium levelOrdered By: Tylor Craven on 03-01-2025 Sodium [Moles/Vol] 140 mmol/L 133-145 [facility] Total proteinOrdered By: Geoffrey Craven on 03-01-2025 Protein [Mass/Vol] 7.3 g/dL 5.9-8.4 [facility] L3890.6102on 12-02-2024 HEP B Surf Ag Non-Reactive Normal Nonreactive [facility] Comment on above: Order Comment: MERLIN Pitts ADD A1C HECAB HEBSAG HEBSAB TO BLOOD DRAWN 11/30/24 PER Result Comment: Reac tive: Presumptive evidence of HBV. Repeatedly reactive samples must be confirmed using a neutralization test ([employer] HBsAg Confirmatory Test) Non-Reactive: HBsAg not detected; does not exclude the possibility of exposure to HBV Performed By: #### L 501.9985, L500.4050, L3890.6202, L3890.6301, L3890.6102, L400.2010, L100.0100, L500.4100, L501.5200 #### [facility] [address] [facility] [place], [address] L3890.6202on 12-02-2024 HEP B Surf Ab REAC Normal [facility] Comment on above: Order Comment: MERLIN Pitts ADD A1C HECAB HEBSAG HEBSAB TO BLOOD DRAWN 11/30/24 PER Result Comment: <8.5 mIU/mL: Non-Reactive 8.5<= x <11.5 mIU/mL: Indeterminate >=11.5 mIU/mL: Reactive Non Reactive: Inconsistent with immunity less than <10 mIU/mL Reactive: Consistent with immunity greater than or equal to 10 mIU/mL Performed By: #### L 501.9985, L500.4050, L3890.6202, L3890.6301, L3890.6102, L4, L100.0100, L500.4100, L501.5200 #### [facility] [address] [facility] [place], [address] L3890.6301on 12-02-2024 Hepatitis C Ab Non-Reactive Normal Nonreactive [facility] Comment on above: Order Comment: MERLIN Pitts ADD A1C HECAB HEBSAG HEBSAB TO BLOOD DRAWN 11/30/24 PER Result Comment: Reac tive: Presumptive evidence of antibodies to HCV. Follow CDC recommendations for supplemental testing. Non-Reactive: Antibodies to HCV were not detected; does not exclude the possibility of exposure to HCV Reactive Results are presumptive evidence of antibodies to HCV. Follow CDC recommendations for supplemental testing. Order confirmation testing: HCV Quant by PCR testing - HCVPCR #[id number] Non Reactive: < 0.8 Equivocal: >/= 0.8 to < 1.0 Reactive: >/= 1.0 The CDC requires that a reactive/equivocal HCV antibody result be sent out for confirmation. HCV Quant by PCR testing. Performed By: #### L 501.9985, L500.4050, L3890.6202, L3890.6301, L3890.6102, L400, L100.0100, L500.4100, L501.5200 #### [facility] [address] [place], [address] Lipid Profileon 12-02-2024 CHOL:HDL 5.06 Normal [facility] Comment on above: Order Comment: MERLIN Pitts ADD A1C HECAB HEBSAG HEBSAB TO BLOOD DRAWN 11/30/24 PER Performed By: #### L 501.9985, L500.4050, L3890.6202, L3890.6301, L3890.6102, L400.2010, L100.0100, L500.4100, L501.5200 #### [facility] [address] [place], [address] Cholesterol [Mass/Vol] 202 mg/dL High <=200 [facility] Comment on above: Order Comment: MERLIN Pitts ADD A1C HECAB HEBSAG HEBSAB TO BLOOD DRAWN 11/30/24 PER Result Comment: Chol esterol level, Desirable <200 mg/dL Borderline high cholesterol 200-239 mg/dL High cholesterol >=240 mg/dL Recommendations of the NCEP Adult Treatment Panel for the following risk-cutoff thresholds for the [place] population. Performed By: #### L 501.9985, L500.4050, L3890.6202, L3890.6301, L3890.6102, L400.2010, L100.0100, L500.4100, L501.5200 #### [facility] [address] [place], [address] Cholesterol in HDL [Mass/Vol] 40 mg/dL Normal [facility] Comment on above: Order Comment: MERLIN Pitts ADD A1C HECAB HEBSAG HEBSAB TO BLOOD DRAWN 11/30/24 PER Result Comment: [facility] [employer] Cholesterol Education Program (NCEP) guidelines: <40 mg/dL: Low HDL-cholesterol (major risk factor for CHD) >= 60 mg/dL: High HDL-cholesterol (negative risk factor for CHD) HDL-cholesterol is affected by a number of factors, e.g. smoking, exercise, hormones, sex and age. Performed By: #### L 501.9985, L500.4050, L3890.6202, L3890.6301, L3890.6102, L400.2010, L100.0100, L500.4100, L501.5200 #### [facility] [address] [place], [address] Cholesterol in LDL [Mass/Vol] 120 mg/dL Normal [facility] Comment on above: Order Comment: MERLIN Pitts ADD A1C HECAB HEBSAG HEBSAB TO BLOOD DRAWN 11/30/24 PER Result Comment: Bord yckwcr=616-306 mg/dL Higher Bzqh=022 mg/dL or greater Performed By: #### L 501.9985, L500.4050, L3890.6202, L3890.6301, L3890.6102, L400.2010, L100.0100, L500.4100, L501.5200 #### [facility] [address] [place], [address] Cholesterol in VLDL [Mass/Vol] 43 mg/dL High 5-40 [facility] Comment on above: Order Comment: MERLIN Pitts ADD A1C HECAB HEBSAG HEBSAB TO BLOOD DRAWN 11/30/24 PER Performed By: #### L 501.9985, L500.4050, L3890.6202, L3890.6301, L3890.6102, L400.2010, L100.0100, L500.4100, L501.5200 #### [facility] [address] [place], [address] Triglyceride [Mass/Vol] 213 mg/dL High [facility] Comment on above: Order Comment: MERLIN Pitts ADD A1C HECAB HEBSAG HEBSAB TO BLOOD DRAWN 11/30/24 PER Result Comment: The drugs N-Acetylcysteine and Metamizole may falsely depress this assay. Normal range: <150 mg/dL Borderline High: 150-199 mg/dL High: 200-499 mg/dL Very High: >500 mg/dL Performed By: #### L 501.9985, L500.4050, L3890.6202, L3890.6301, L3890.6102, L400.2010, L100.0100, L500.4100, L501.5200 #### [facility] [address] [place], [place], [address] Hemoglobin A1con 12-01-2024 HbA1c (Bld) [Mass fraction] 6.0 % Normal <=5.6 [facility] Comment on above: Order Comment: MERLIN Pitts ADD A1C HECAB HEBSAG HEBSAB TO BLOOD DRAWN 11/30/24 PER Performed By: #### L 501.9985, L500.4050, L3890.6202, L3890.6301, L3890.6102, L400.2010, L100.0100, L500.4100, L501.5200 #### [facility] [address] [place], [place], [id number] Absolute lymphocyte countOrd ered By: Tylor Craven on 11-30-2024 Lymphocytes Auto (Unsp spec) [#/Vol] 2.89 10*3/uL 0.83-4.51 [facility] Absolute neutrophil countOrd ered By: Tylor Craven on 11-30-2024 Neutrophils (Bld) [#/Vol] 4.8 10*3/uL 2.0-7.7 [facility] Automated lymphocyte count a s percentage of total leukocytesOrdered By: Tylor Craven on 11-30-2024 Lymphocytes/100 WBC Auto (Unsp spec) 32.9 % -41 [facility] BUN/creatinine ratioOrdered By: Tylor Craven on 11-30-2024 Urea nitrogen/Creatinine [Mass ratio] 17.0 mg/mg 10-20 [facility] Basophil percentageOrdered B y: Tylor Craven on 11-30-2024 Basophils/100 WBC (Bld) 0.8 % 0-1 [facility] Bilirubin Test strip Ql (U)O rdered By: Tylor Craven on 11-30-2024 Bilirubin Ql (U) Negative Negative [facility] Bilirubin, totalOrdered By: Tylor Craven on 11-30-2024 Bilirubin [Mass/Vol] 0.46 mg/dL 0.00-1.30 [facility] CBC W/Diff, Automatedon 11-06 Absolute Lymph 2.89 X10 3/uL Normal 0.83-4.51 [facility] Comment on above: Performed By: #### L 501.9985, L500.4050, L3890.6202, L3890.6301, L3890.6102, L400.2010, L100.0100, L500.4100, L501.5200 #### [facility] [address] [place], [address] Absolute Neut 4.8 X10 3/uL Normal 2.0-7.7 [facility] Comment on above: Performed By: #### L 501.9985, L500.4050, L3890.6202, L3890.6301, L3890.6102, L400.2010, L100.0100, L500.4100, L501.5200 #### [facility] [address] [place], [address] Basophils/100 WBC (Bld) 0.8 % Normal 0-1 [facility] Comment on above: Performed By: #### L 501.9985, L500.4050, L3890.6202, L3890.6301, L3890.6102, L400.2010, L100.0100, L500.4100, L501.5200 #### [facility] [address] [place], [address] Eosinophils/100 WBC (Bld) 1.6 % Normal 0-5 [facility] Comment on above: Performed By: #### L 501.9985, L500.4050, L3890.6202, L3890.6301, L3890.6102, L400.2011, L100.0100, L500.4100, L501.5200 #### [facility] [address] [place], [address] Erythrocyte distribution width (RBC) [Ratio] 12.0 % Normal 11.6-14.6 [facility] Comment on above: Performed By: #### L 501.9985, L500.4050, L3890.6202, L3890.6301, L3890.6102, L400.2010, L100.0100, L500.4100, L501.5200 #### [facility] [address] [facility] [place], [address] Hematocrit (Bld) [Volume fraction] 44.6 % Normal 40-54 [facility] Comment on above: Performed By: #### L 501.9985, L500.4050, L3890.6202, L3890.6301, L3890.6102, L400.2010, L100.0100, L500.4100, L501.5200 #### [facility] [address] [place], [address] Hemoglobin (Bld) [Mass/Vol] 14.9 g/dL Normal 13.0-16.5 [facility] Comment on above: Performed By: #### L 501.9985, L500.4050, L3890.6202, L3890.6301, L3890.6102, L400.2010, L100.0100, L500.4100, L501.5200 #### [facility] [address] [facility] [place], [address] IG% 0.500 Normal 0.0-0.9 [facility] Comment on above: Result Comment: IG% - Immature Granulocytes (promyelocytes, myelocytes and metamyelocytes) > 1% indicates that a LEFT SHIFT is Present. Performed By: #### L 501.9985, L500.4050, L3890.6202, L3890.6301, L3890.6102, L400.2010, L100.0100, L500.4100, L501.5200 #### [facility] [address], [address] Lymphocytes/100 WBC (Bld) 32.9 % Normal 19-41 [facility] Comment on above: Performed By: #### L 501.9985, L500.4050, L3890.6202, L3890.6301, L3890.6102, L400.2010, L100.0100, L500.4100, L501.5200 #### [facility] [address] [facility] [place], [address] MCH (RBC) [Entitic mass] 28.7 pg Normal 27.0-32.0 [facility] Comment on above: Performed By: #### L 501.9985, L500.4050, L3890.6202, L3890.6301, L3890.6102, L400.2010, L100.0100, L500.4100, L501.5200 #### [facility] [address] [facility] [place], [address] MCHC (RBC) [Mass/Vol] 33.4 g/dL Normal 32-36 [facility] Comment on above: Performed By: #### L 501.9985, L500.4050, L3890.6202, L3890.6301, L3890.6102, L400.2010, L100.0100, L500.4100, L501.5200 #### [facility] [address] [facility] [place], [address] MCV (RBC) [Entitic vol] 85.9 fL Normal 80-94 [facility] Comment on above: Performed By: #### L 501.9985, L500.4050, L3890.6202, L3890.6301, L3890.6102, L400.2010, L100.0100, L500.4100, L501.5200 #### [facility] [address] [place], [address] Monocytes/100 WBC (Bld) 10.0 % Normal 0-10 [facility] Comment on above: Performed By: #### L 501.9985, L500.4050, L3890.6202, L3890.6301, L3890.6102, L400.2010, L100.0100, L500.4100, L501.5200 #### [facility] [address], [address] Neutrophils/100 WBC (Bld) 54.2 % Normal 47-70 [facility] Comment on above: Performed By: #### L 501.9985, L500.4050, L3890.6202, L3890.6301, L3890.6102, L400.2010, L100.0100, L500.4100, L501.5200 #### [facility] [address] [place], [address] Nucleated RBC (Bld) [#/Vol] 0 10*3/uL Normal 0-5 [facility] Comment on above: Performed By: #### L 501.9985, L500.4050, L3890.6202, L3890.6301, L3890.6102, L400.2010, L100.0100, L500.4100, L501.5200 #### [facility] [address] [place], [address] Platelet mean volume (Bld) [Entitic vol] 10.8 fL Normal 6.2-12.0 [facility] Comment on above: Performed By: #### L 501.9985, L500.4050, L3890.6202, L3890.6301, L3890.6102, L400.2010, L100.0100, L500.4100, L501.5200 #### [facility] [address] [place], [address] Platelets (Bld) [#/Vol] 345 10*3/uL Normal 150-450 [facility] Comment on above: Performed By: #### L 501.9985, L500.4050, L3890.6202, L3890.6301, L3890.6102, L400.2010, L100.0100, L500.4100, L501.5200 #### [facility] [address] [place], [address] RBC (Bld) [#/Vol] 5.19 10*6/uL Normal 4.6-6.2 [facility] Comment on above: Performed By: #### L 501.9985, L500.4050, L3890.6202, L3890.6301, L3890.6102, L400.2010, L100.0100, L500.4100, L501.5200 #### [facility] [address] [place], [address] RDW SD 37.7 fl Normal 35.1-43.9 [facility] Comment on above: Performed By: #### L 501.9985, L500.4050, L3890.6202, L3890.6301, L3890.6102, L400.2010, L100.0100, L500.4100, L501.5200 #### [facility] [address] [place], [address] WBC (Bld) [#/Vol] 8.8 10*3/uL Normal 4.4-11.0 [facility] Comment on above: Performed By: #### L 501.9985, L500.4050, L3890.6202, L3890.6301, L3890.6102, L400.2010, L100.0100, L500.4100, L501.5200 #### [facility] [address], [address] Calculated very low density lipoprotein (VLDL) cholesterol measurementOrdered By: Tylor Craven on 11-30-2024 Calculated very low density lipoprotein (VLDL) cholesterol measurement 43 mg/dL High 5-40 [facility] VLDL Cholesterol 43 mg/dL High 5-40 [facility] Carbon dioxide measurementOr dered By: Tylor Craven on 11-30-2024 CO2 [Moles/Vol] 23.9 mmol/L 22.0-29.0 [facility] Chloride measurementOrdered By: Tylor Craven on 11-30-2024 Chloride [Moles/Vol] 103 mmol/L 96-108 [facility] Comprehensive Metabolic Prof ilon 11-30-2024 Albumin [Mass/Vol] 4.4 g/dL Normal 3.5-5.0 [facility] [facility] Comment on above: Performed By: #### L 501.9985, L500.4050, L3890.6202, L3890.6301, L3890.6102, L400.2010, L100.0100, L500.4100, L501.5200 #### [facility] [address], [address] Albumin/Globulin [Mass ratio] 1.6 {ratio} Normal 0.9-2.4 [facility] Comment on above: Performed By: #### L 501.9985, L500.4050, L3890.6202, L3890.6301, L3890.6102, L400.2010, L100.0100, L500.4100, L501.5200 #### [facility] [address] [place], [address] ALK PHOS 60 U/L Normal 40-129 [facility] Comment on above: Performed By: #### L 501.9985, L500.4050, L3890.6202, L3890.6301, L3890.6102, L400.2010, L100.0100, L500.4100, L501.5200 #### [facility] [address] [place], [address] ALT [Catalytic activity/Vol] 54 U/L High <=46 [facility] Comment on above: Performed By: #### L 501.9985, L500.4050, L3890.6202, L3890.6301, L3890.6102, L400.2010, L100.0100, L500.4100, L501.5200 #### [facility] [address] [place], [address] Anion gap [Moles/Vol] 13 mmol/L Normal 5-15 [facility] Comment on above: Performed By: #### L 501.9985, L500.4050, L3890.6202, L3890.6301, L3890.6102, L400.2010, L100.0100, L500.4100, L501.5200 #### [facility] [address] [place], [address] AST [Catalytic activity/Vol] 36 U/L Normal <=37 [facility] Comment on above: Performed By: #### L 501.9985, L500.4050, L3890.6202, L3890.6301, L3890.6102, L400.2010, L100.0100, L500.4100, L501.5200 #### [facility] [address] [place], [address] Bilirubin [Mass/Vol] 0.46 mg/dL Normal 0.00-1.30 [facility] Comment on above: Performed By: #### L 501.9985, L500.4050, L3890.6202, L3890.6301, L3890.6102, L400.2010, L100.0100, L500.4100, L501.5200 #### [facility] [address] [place], [address] BUN/CRE 17.0 RATIO Normal 10-20 [facility] Comment on above: Performed By: #### L 501.9985, L500.4050, L3890.6202, L3890.6301, L3890.6102, L400.2011, L100.0100, L500.4100, L501.5200 #### [facility] [address] [place], [address] Calcium [Mass/Vol] 9.9 mg/dL Normal 7.6-11.0 [facility] Comment on above: Performed By: #### L 501.9985, L500.4050, L3890.6202, L3890.6301, L3890.6102, L400.2010, L100.0100, L500.4100, L501.5200 #### [facility] [address] [place], [address] Chloride [Moles/Vol] 103 mmol/L Normal 96-108 [facility] Comment on above: Performed By: #### L 501.9985, L500.4050, L3890.6202, L3890.6301, L3890.6102, L400.2010, L100.0100, L500.4100, L501.5200 #### [facility] [address] [place], [address] CO2 [Moles/Vol] 23.9 mmol/L Normal 22.0-29.0 [facility] Comment on above: Performed By: #### L 501.9985, L500.4050, L3890.6202, L3890.6301, L3890.6102, L400.2010, L100.0100, L500.4100, L501.5200 #### [facility] [address] [place], [address] Creatinine [Mass/Vol] 1.0 mg/dL Normal 0.8-1.3 [facility] Comment on above: Performed By: #### L 501.9985, L500.4050, L3890.6202, L3890.6301, L3890.6102, L400.2010, L100.0100, L500.4100, L501.5200 #### [facility] [address] [place], [address] GFR/1.73 sq M.predicted among non-blacks MDRD (S/P/Bld) [Vol rate/Area] 102 mL/min/{1.73_m2} Normal >60 [facility] Comment on above: Result Comment: mL/m in/1.73m2 CKD-EPI Creatinine Equation (2020) Performed By: #### L 501.9985, L500.4050, L3890.6202, L3890.6301, L3890.6102, L400.2010, L100.0100, L500.4100, L501.5200 #### [facility] [address] [place], [address] Globulin (S) [Mass/Vol] 2.8 g/dL Normal 2.2-4.2 [facility] Comment on above: Performed By: #### L 501.9985, L500.4050, L3890.6202, L3890.6301, L3890.6102, L400.2010, L100.0100, L500.4100, L501.5200 #### [facility] [address] [place], [address] Glucose [Mass/Vol] 108 mg/dL High 70-99 [facility] Comment on above: Performed By: #### L 501.9985, L500.4050, L3890.6202, L3890.6301, L3890.6102, L400.2010, L100.0100, L500.4100, L501.5200 #### [facility] [address] [place], [address] Potassium [Moles/Vol] 4.0 mmol/L Normal 3.3-5.1 [facility] Comment on above: Performed By: #### L 501.9985, L500.4050, L3890.6202, L3890.6301, L3890.6102, L400.2011, L100.0100, L500.4100, L501.5200 #### [facility] [address] [place], [address] Sodium [Moles/Vol] 139 mmol/L Normal 133-145 [facility] Comment on above: Performed By: #### L 501.9985, L500.4050, L3890.6202, L3890.6301, L3890.6102, L400.2010, L100.0100, L500.4100, L501.5200 #### [facility] [address] [place], [address] T PROT 7.2 g/dL Normal 5.9-8.4 [facility] Comment on above: Performed By: #### L 501.9985, L500.4050, L3890.6202, L3890.6301, L3890.6102, L400.2010, L100.0100, L500.4100, L501.5200 #### [facility] [address] [place], [address] Urea nitrogen [Mass/Vol] 16 mg/dL Normal 4-19 [facility] Comment on above: Performed By: #### L 501.9985, L500.4050, L3890.6202, L3890.6301, L3890.6102, L400.2010, L100.0100, L500.4100, L501.5200 #### [facility] [address] [place], [address] Eosinophil percentageOrdered By: Tylor Craven on 11-30-2024 Eosinophils/100 WBC (Bld) 1.6 % 0-5 [facility] Erythrocyte distribution wid th ratioOrdered By: Tylor Craven on 11-30-2024 Erythrocyte distribution width (RBC) [Ratio] 12.0 % 11.6-14.6 [facility] Erythrocyte distribution wid th standard deviationOrdered By: Tylor Craven on 11-30-2024 Erythrocyte distribution width (RBC) [Entitic vol] 37.7 fL 35.1-43.9 [facility] Erythrocyte distribution width (RBC) [Ratio] 37.7 fl 35.1-43.9 [facility] GFR/1.73 sq M.predicted rehana g non-blacks MDRD (S/P/Bld) [Vol rate/Area]Ordered By: Tylor Craven on 11-30-2024 Estimated GFR (MDRD) Non-Af Amer 102 >60 [facility] Comment on above: mL/min/1.73m2 CKD-EP I Creatinine Equation (2020) Glomerular filtration rate ( GFR) estimation/1.73 sq m using serum, plasma, or whole bOrdered By: Tylor Craven on 11-30-2024 GFR/1.73 sq M.predicted among non-blacks MDRD (S/P/Bld) [Vol rate/Area] 102 mL/min/{1.73_m2} >60 [facility] Comment on above: mL/min/1.73m2 CKD-EP I Creatinine Equation (2020) Glucose Ql (U)Ordered By: Cesilia Craven on 11-30-2024 Urine Glucose (UA) Normal mg/dl Normal [facility] HBV surface Ab Ql (S)Ordered By: Tylor Craven on 11-30-2024 Hepatitis B Surface Antibody REAC [facility] Comment on above: <8.5 mIU/mL: Non-[place] ctive8.5<= x <11.5 mIU/mL: Indeterminate>=11.5 mIU/mL: Reactive Non Reactive: Inconsistent with immunity less than <10 mIU/mL Reactive: Consistent with immunity greater than or equal to 10 mIU/mL HBV surface Ag Ql (S)Ordered By: Tylor Craven on 11-30-2024 Hepatitis B Surface Antigen Non-Reactive Nonreactive [facility] Comment on above: Reactive: Presumptiv e evidence of HBV. Repeatedly reactive samples must be confirmed using a neutralization test ([employer] HBsAg Confirmatory Test)Non-Reactive: HBsAg not detected; does not exclude the possibility of exposure to HBV Hematocrit Auto (Bld) [Volum e fraction]Ordered By: Tylor Craven on 11-30-2024 Hematocrit (Bld) [Volume fraction] 44.6 % 40-54 [facility] Hemoglobin A1c percentageOrd ered By: Tylor Craven on 11-30-2024 HbA1c (Bld) [Mass fraction] 6.0 % >5.7 [facility] Hemoglobin measurementOrdere d By: Tylor Craven on 11-30-2024 Hemoglobin (Bld) [Mass/Vol] 14.9 g/dL 13.0-16.5 [facility] Hepatitis C antibodyOrdered By: Tylor Craven on 11-30-2024 Hepatitis C Antibody Non-Reactive Nonreactive [facility] Comment on above: Reactive: Presumptiv e evidence of antibodies to HCV. Follow CDC recommendations for supplemental testing.Non-Reactive: Antibodies to HCV were not detected; does not exclude the possibility of exposure to HCVReactive Results are presumptive evidence of antibodies to HCV. Follow CDC recommendations for supplemental testing.Order confirmation testing: HCV Quant by PCR testing - HCVPCR #[id number] Non Reactive: < 0.8 Equivocal: >/= 0.8 to < 1.0 Reactive: >/= 1.0The CDC requires that a reactive/equivocal HCV antibody result be sent out for confirmation. HCV Quant by PCR testing. Immature granulocytes/100 WB C Auto (Bld)Ordered By: Tylor Craven on 11-30-2024 Immature granulocytes/100 WBC (Bld) 0.500 % 0.0-0.9 [facility] Comment on above: IG% - Immature Granu locytes (promyelocytes, myelocytes and metamyelocytes) > 1% indicates that a LEFT SHIFT is Present. Ketones Test strip Ql (U)Ord ered By: Tylor Craven on 11-30-2024 Ketones Ql (U) Negative Negative [facility] LDL calc ser/plasOrdered By: Tylor Craven on 11-30-2024 Cholesterol in LDL [Mass/Vol] 120 mg/dL [facility] Comment on above: Vjonlrqzvs=691-078 m g/dL & Higher Plbf=891 mg/dL or greater LDL Cholesterol, Calculated 120 mg/dL [facility] Comment on above: Fjpplynubb=467-484 m g/dL & Higher Tryy=715 mg/dL or greater Laboratory - Chemistry and C hemistry - challengeOrdered By: Tylor Craven on 11-30-2024 AST [Catalytic activity/Vol] 36 U/L <38 [facility] - Microbiology an d Antimicrobial susceptibilityOrdered By: Tylor Craven on 11-30-2024 HBV surface Ag Ql (S) Non-Reactive Nonreactive [facility] Comment on above: Reactive: Presumptiv e evidence of HBV. Repeatedly reactive samples must be confirmed using a neutralization test ([employer] HBsAg Confirmatory Test)Non-Reactive: HBsAg not detected; does not exclude the possibility of exposure to HBV Lymphocytes Auto (Unsp spec) [#/Vol]Ordered By: Tylor Craven on 11-30-2024 Lymphocytes (Bld) [#/Vol] 2.89 10*3/uL 0.83-4.5 1 [facility] Lymphocytes/100 WBC Auto (Un sp spec)Ordered By: Tylor Craven on 11-30-2024 Lymphocytes/100 WBC (Bld) 32.9 % 19-41 [facility] MCV (mean corpuscular volume ) determinationOrdered By: Tylor Craven on 11-30-2024 MCV (RBC) [Entitic vol] 85.9 fL 80-94 [facility] Magnesiumon 11-30-2024 Magnesium [Mass/Vol] 2.4 mg/dL High 1.5-2.2 [facility] Comment on above: Performed By: #### L 501.9985, L500.4050, L3890.6202, L3890.6301, L3890.6102, L400.2011, L100.0100, L500.4100, L501.5200 #### [facility] [address] [place], [address] Magnesium (Unsp spec) [Mass/ Vol]Ordered By: Tylor Craven on 11-30-2024 Magnesium [Mass/Vol] 2.4 mg/dL High 1.5-2.2 [facility] Magnesium measurement (mass/ volume)Ordered By: Tylor Cravne on 11-30-2024 Magnesium (Unsp spec) [Mass/Vol] 2.4 mg/dL High 1.5-2.2 [facility] Mean corpuscular hemoglobin (MCH) determinationOrdered By: Tylor Craven on 11-30-2024 MCH (RBC) [Entitic mass] 28.7 pg 27.0-32.0 [facility] Mean corpuscular hemoglobin concentration (MCHC) determinationOrdered By: Tylor Craven on 11-30-2024 MCHC (RBC) [Mass/Vol] 33.4 g/dL 32-36 [facility] Mean platelet volume determi nationOrdered By: Tylor Craven on 11-30-2024 Platelet mean volume (Bld) [Entitic vol] 10.8 fL 6.2-12.0 [facility] Monocyte percentageOrdered B y: Tylor Craven on 11-30-2024 Monocytes/100 WBC (Bld) 10.0 % 0-10 [facility] Neutrophil percentageOrdered By: Tylor Craven on 11-30-2024 Neutrophils/100 WBC (Bld) 54.2 % 47-70 [facility] Nitrite Test strip Ql (U)Ord ered By: Tylor Craven on 11-30-2024 Nitrite Ql (U) Negative Negative [facility] Nucleated red blood cell per centageOrdered By: Tylor Craven on 11-30-2024 Nucleated RBC/100 WBC (Bld) [Ratio] 0 % 0-5 [facility] Platelet countOrdered By: Cesilia Craven on 11-30-2024 Platelets (Bld) [#/Vol] 345 10*3/uL 150-450 [facility] Protein Test strip Ql (U)Ord ered By: Tylor Craven on 11-30-2024 Protein Ql (U) 30 mg/dl High Negative [facility] RBC Auto (Bld) [#/Vol]Ordere d By: Tylor Craven on 11-30-2024 RBC (Bld) [#/Vol] 5.19 10*6/uL 4.6-6.2 [facility] Screening total cholesterol/ high density lipoprotein (HDL) cholesterol ratioOrdered By: Tylor Craven on 11-30-2024 Cholesterol.total/Cholest lyn in HDL [Mass ratio] 5.06 {ratio} [facility] Serum creatinine measurement (mass/volume)Ordered By: Tylor Craven on 11-30-2024 Creatinine [Mass/Vol] 1.0 mg/dL 0.70-1.20 [facility] Serum globulin measurementOr dered By: Tylor Craven on 11-30-2024 Globulin (S) [Mass/Vol] 2.8 g/dL 2.2-4.2 [facility] Serum glucose measurement (m ass/volume)Ordered By: Tylor Craven on 11-30-2024 Glucose [Mass/Vol] 108 mg/dL High 70-99 [facility] Serum hepatitis B virus surf [place] antibody detectionOrdered By: Tylor Craven on 11-30-2024 HBV surface Ab Ql (S) REAC [facility] Comment on above: <8.5 mIU/mL: Non-[place]rey[place] ctive8.5<= x <11.5 mIU/mL: Indeterminate>=11.5 mIU/mL: Reactive Non Reactive: Inconsistent with immunity less than <10 mIU/mL Reactive: Consistent with immunity greater than or equal to 10 mIU/mL Serum or plasma alanine glez otransferase (ALT) measurementOrdered By: Tylor Craven on 11-30-2024 ALT [Catalytic activity/Vol] 54 U/L High <47 [facility] Serum or plasma albumin lorna urement (mass/volume)Ordered By: Tylor Craven on 11-30-2024 Albumin [Mass/Vol] 4.4 g/dL 3.5-5.0 [facility] Serum or plasma albumin/glob ulin mass ratioOrdered By: Tylor Craven on 11-30-2024 Albumin/Globulin [Mass ratio] 1.6 {ratio} 0.9-2.4 [facility] Serum or plasma alkaline isidra sphatase measurementOrdered By: Tylor Craven on 11-30-2024 ALP [Catalytic activity/Vol] 60 U/L 40-129 [facility] Serum or plasma anion gap de termination (moles/volume)Ordered By: Tylor Craven on 11-30-2024 Anion gap [Moles/Vol] 13 mmol/L 5-15 [facility] Serum or plasma calcium lorna urement (mass/volume)Ordered By: Tylor Craven on 11-30-2024 Calcium [Mass/Vol] 9.9 mg/dL 7.6-11.0 [facility] Serum or plasma cholesterol in HDL measurement (mass/volume)Ordered By: Tylor Craven on 11-30-2024 Cholesterol in HDL [Mass/Vol] 40 mg/dL >40 [facility] Comment on above: National Cholesterol Education Program (NCEP) guidelines:<40 mg/dL: Low HDL-cholesterol (major risk factor for CHD)>= 60 mg/dL: High HDL-cholesterol (negative risk factor for CHD)HDL-cholesterol is affected by a number of factors, e.g. smoking, exercise, hormones, sex and age. Serum or plasma cholesterol measurement (mass/volume)Ordered By: Tylor Craven on 11-30-2024 Cholesterol [Mass/Vol] 202 mg/dL High <201 [facility] Comment on above: Cholesterol level, D esirable <200 mg/dLBorderline high cholesterol 200-239 mg/dLHigh cholesterol >=240 mg/dLRecommendations of the NCEP Adult Treatment Panel for the following risk-cutoff thresholds for the [place] population. Serum or plasma potassium me asurementOrdered By: Tylor Craven on 11-30-2024 Potassium [Moles/Vol] 4.0 mmol/L 3.3-5.1 [facility] Serum or plasma sodium measu rement (moles/volume)Ordered By: Tylor Craven on 11-30-2024 Sodium [Moles/Vol] 139 mmol/L 133-145 [facility] Serum or plasma urea nitroge n measurement (mass/volume)Ordered By: Tylor Craven on 11-30-2024 Urea nitrogen [Mass/Vol] 16 mg/dL 4-19 [facility] Total proteinOrdered By: Geoffrey Craven on 11-30-2024 Protein [Mass/Vol] 7.2 g/dL 5.9-8.4 [facility] Triglycerides measurementOrd ered By: Tylor Craven on 11-30-2024 Triglyceride [Mass/Vol] 213 mg/dL High <199 [facility] Comment on above: The drugs N-Acetylcy steine and Metamizole may falsely depress this assay. Normal range: <150 mg/dLBorderline High: 150-199 mg/dLHigh: 200-499 mg/dLVery High: >500 mg/dL Urinalysis, Routine (Dipstic k)on 11-30-2024 BILIRUBIN URINE Negative Normal Negative [facility] Comment on above: Order Comment: CLEAN CATCH Performed By: #### L 501.9985, L500.4050, L3890.6202, L3890.6301, L3890.6102, L400.2010, L100.0100, L500.4100, L501.5200 #### [facility] [address] [place], [place], [id number] Clarity (U) Clear Normal Clear [facility] Comment on above: Order Comment: CLEAN CATCH Performed By: #### L 501.9985, L500.4050, L3890.6202, L3890.6301, L3890.6102, L400.2010, L100.0100, L500.4100, L501.5200 #### [facility] [address] [place], [place], [id number] Color (U) Yellow Normal Yellow [facility] Comment on above: Order Comment: CLEAN CATCH Performed By: #### L 501.9985, L500.4050, L3890.6202, L3890.6301, L3890.6102, L400.2010, L100.0100, L500.4100, L501.5200 #### [facility] [address] [place], [place], [id number] GLUCOSE, UR Normal Normal Normal [facility] Comment on above: Order Comment: CLEAN CATCH Performed By: #### L 501.9985, L500.4050, L3890.6202, L3890.6301, L3890.6102, L400.2010, L100.0100, L500.4100, L501.5200 #### [facility] [address] [place], [address] KETONE UR Negative Normal Negative [facility] Comment on above: Order Comment: CLEAN CATCH Performed By: #### L 501.9985, L500.4050, L3890.6202, L3890.6301, L3890.6102, L400.2010, L100.0100, L500.4100, L501.5200 #### [facility] [address] [place], [address] LEUK ESTERASE Negative Normal Negative [facility] Comment on above: Order Comment: CLEAN CATCH Performed By: #### L 501.9985, L500.4050, L3890.6202, L3890.6301, L3890.6102, L400.2010, L100.0100, L500.4100, L501.5200 #### [facility] [address] [place], [address] Nitrite Ql (U) Negative Normal Negative [facility] Comment on above: Order Comment: CLEAN CATCH Performed By: #### L 501.9985, L500.4050, L3890.6202, L3890.6301, L3890.6102, L400.2010, L100.0100, L500.4100, L501.5200 #### [facility] [address] [place], [address] OCCULT BLOOD-UR Negative Normal Negative [facility] Comment on above: Order Comment: CLEAN CATCH Performed By: #### L 501.9985, L500.4050, L3890.6202, L3890.6301, L3890.6102, L400.2010, L100.0100, L500.4100, L501.5200 #### [facility] [address] [place], [address] pH UR 6.0 Normal 5.0 - 8.0 [facility] Comment on above: Order Comment: CLEAN CATCH Performed By: #### L 501.9985, L500.4050, L3890.6202, L3890.6301, L3890.6102, L400.2010, L100.0100, L500.4100, L501.5200 #### [facility] [address] [place], [address] PROT DIPSTX 30 mg/dl Abnormal Negative [facility] Comment on above: Order Comment: CLEAN CATCH Performed By: #### L 501.9985, L500.4050, L3890.6202, L3890.6301, L3890.6102, L400.2010, L100.0100, L500.4100, L501.5200 #### [facility] [address], [address] SP.GR. DIPSTX 1.025 Normal 1.002-1.030 [facility] Comment on above: Order Comment: CLEAN CATCH Performed By: #### L 501.9985, L500.4050, L3890.6202, L3890.6301, L3890.6102, L400.2010, L100.0100, L500.4100, L501.5200 #### [facility] [address] [place], [address] UROBILI Normal Normal Normal [facility] Comment on above: Order Comment: CLEAN CATCH Performed By: #### L 501.9985, L500.4050, L3890.6202, L3890.6301, L3890.6102, L400.2010, L100.0100, L500.4100, L501.5200 #### [facility] [address] [place], [address] Urine blood detectionOrdered By: Tylor Craven on 11-30-2024 Urine Occult Blood Negative Negative [facility] Urine clarityOrdered By: Geoffrey Craven on 11-30-2024 Clarity (U) Clear Clear [facility] Urine color determinationOrd ered By: Tylor Craven on 11-30-2024 Color (U) Yellow Yellow [facility] Urine glucose detectionOrder ed By: Tylor Craven on 11-30-2024 Glucose Ql (U) Normal mg/dl Normal [facility] Urine leukocyte esterase det ection by dipstickOrdered By: Tylor Craven on 11-30-2024 Leukocyte esterase Test strip Ql (U) Negative Negative [facility] Urine pHOrdered By: Tylor potts on 11-30-2024 pH (U) 6.0 [pH] 5.0 - 8.0 [facility] Urine specific gravity measu rementOrdered By: Tylor Craven on 11-30-2024 Specific gravity (U) [Rel density] 1.025 1.002-1.030 [facility] Urine urobilinogen measureme ntOrdered By: Tylor Craven on 11-30-2024 Urobilinogen Ql (U) Normal mg/dl Normal [facility] Urobilinogen Ql (U)Ordered B y: Tylor Craven on 11-30-2024 Urine Urobilinogen Normal mg/dl Normal [facility] White blood cell (WBC) count Ordered By: Tylor Craven on 11-30-2024 WBC (Bld) [#/Vol] 8.8 10*3/uL 4.4-11.0 [facility] CNOVon 11-14-2024 OV Office Visit (UCWSTR) ---- SHEMAR BOYCE ([id number]) 1985 M Date Time Provider Department 11/14/24 1:00 PM ALDO MORILLO [facility] During your visit today, we recorded the following information about you: Temperature Pulse Respiration Blood pressure 98.1 degrees 76/minute 18/minute 148/92 Weight 171 kg Aldo Morillo, ELICEO.NICHOLE 11/14/2024 1:23 PM Signed This note was created using [employer]. Subjective Shemar Boyce is a 39 year old male. 39 year old male with no PMH presents for illness Acute onset one week ago +sore throat +cough +non productive +nasal congestion +sinus pressure +sinus pain +fever/chills (first day or two) Denies dyspnea Denies CP Denies SOB Denies dyspnea Denies tobacco usage Has used Mucinex The history is provided by the patient. No speech language assistant was used. Cough This is a new problem. The current episode started more than 1 week ago. The problem occurs constantly. The problem has not changed since onset.The cough is Non-productive. There has been no fever. Associated symptoms include chills, weight loss, ear congestion, ear pain, headaches, rhinorrhea and sore throat. Pertinent negatives include no chest pain, no sweats, no myalgias, no shortness of breath, no wheezing and no eye redness. He has tried decongestants for the symptoms. The treatment provided no relief. He is not a smoker. His past medical history does not include bronchitis, pneumonia, bronchiectasis, COPD, emphysema or asthma. Sinus Problem This is a new problem. The current episode started in the past 7 days. The problem occurs constantly. The problem has been gradually worsening. Associated symptoms include chills, congestion, coughing, fatigue, a fever, headaches, a sore throat and swollen glands. Pertinent negatives include no abdominal pain, anorexia, arthralgias, change in bowel habit, chest pain, diaphoresis, joint swelling, myalgias, nausea, neck pain, numbness, rash, urinary symptoms, vertigo, visual change, vomiting or weakness. Nothing aggravates the symptoms. Treatments tried: mucinex. The treatment provided no relief. No past medical history on file. No past surgical history on file. ALLERGIES Patient has no known allergies. MEDICATIONS amoxicillin-clavula esteban potassium (AUGMENTIN) 875-125 mg per tablet Take 1 tablet by mouth two times a day for 7 days. ciprofloxacin-dexam ethasone (CIPRODEX) otic suspension Use 4 Drops in the right ear twice daily. (Patient not taking: Reported on 11/14/2024) No family history on file. Social History Tobacco Use Smoking status: Never Substance Use Topics Alcohol use: No Drug use: No Review of Systems Constitutional: Positive for chills, fatigue, fever and weight loss. Negative for diaphoresis. HENT: Positive for congestion, ear pain, postnasal drip, rhinorrhea, sinus pressure, sinus pain and sore throat. Eyes: Negative for discharge, redness and itching. Respiratory: Positive for cough. Negative for shortness of breath and wheezing. Cardiovascular: Negative for chest pain. Gastrointestinal: Negative for abdominal pain, anorexia, change in bowel habit, nausea and vomiting. Musculoskeletal: Negative for arthralgias, joint swelling, myalgias and neck pain. Skin: Negative for rash. Allergic/Immunologi c: Negative for environmental allergies, food allergies and immunocompromised state. Neurological: Positive for headaches. Negative for dizziness, vertigo, facial asymmetry, weakness and numbness. Hematological: Negative for adenopathy. Does not bruise/bleed easily. Psychiatric/Behavio ral: Negative for agitation and behavioral problems. Objective BP 148/92 Pulse 76 Temp 36.7 ?C (98.1 ?F) Resp 18 Wt (!) 171 kg (376 lb 15.8 oz) SpO2 96% Physical Exam Vitals and nursing note reviewed. Constitutional: General: He is not in acute distress. Appearance: Normal appearance. He is not ill-appearing, toxic-appearing or diaphoretic. HENT: Head: Normocephalic and atraumatic. Right Ear: External ear normal. Left Ear: External ear normal. Ears: Comments: Bilateral moderate serous fluid noted Nose: Congestion present. No rhinorrhea. Mouth/Throat: Mouth: Mucous membranes are moist. Pharynx: Oropharynx is clear. Posterior oropharyngeal erythema (2 + enlarged bilateral. Uvula midline) present. No oropharyngeal exudate. Eyes: General: Right eye: No discharge. Left eye: No discharge. Extraocular Movements: Extraocular movements intact. Conjunctiva/sclera: Conjunctivae normal. Pupils: Pupils are equal, round, and reactive to light. Cardiovascular: Rate and Rhythm: Normal rate and regular rhythm. Pulses: Normal pulses. Heart sounds: Normal heart sounds. No murmur heard. No friction rub. No gallop. Pulmonary: Effort: Pulmonary effort is normal. No respiratory distress. Breath sounds: (more content not included)... Normal [facility] STREP A MOLECULAR (POC)on Procedural Control Valid [facility] Strep A (POCT) Negative Negative [facility] Vital Signs Date Time Vital Sign Value Performing Clinician Katie guzman 11-14-2024 13:10-0500 Body temperature 98.1 [degF] 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.FNP Work Phone: [facility] 11-14-2024 13:10-0500 Body weight 171 kg 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.FNP Work Phone: [facility] 11-14-2024 13:10-0500 Diastolic blood pressure 92 mm[Hg] 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.FNP Work Phone: [facility] 11-14-2024 13:10-0500 Heart rate 76 /min 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.FNP Work Phone: [facility] 11-14-2024 13:10-0500 Respiratory rate 18 /min 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.FNP Work Phone: [facility] 11-14-2024 13:10-0500 SaO2% (BldA) [Mass fraction] 96 % 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.FNP Work Phone: [facility] 11-14-2024 13:10-0500 Systolic blood pressure 148 mm[Hg] 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.FNP Work Phone: [facility] Encounters Encounter Date Encounter Type Care Provider Facility Start: 06-28-2025 End: 06-28-[address] Tylor Craven MD Work Phone: -Laboratory [facility] Start: 06-28-2025 End: 06-28-[address] Tylor Craven MD -Laboratory [facility] Start: 06-28-2025 End: 06-28-2025 ambulatory Tylor Craven Facility:[facility] Start: 03-01-2025 End: 03-01-[address] Tylor Craven MD Work Phone: [facility] Work Phone: Start: 03-01-2025 End: 03-01-[address] Tylor Craven MD -Laboratory [facility] Start: 03-01-2025 End: 03-01-2025 ambulatory Tylor Craven Facility:[facility] Start: 11-30-2024 End: 11-30-[address] Tylor Craven MD Work Phone: [facility] Work Phone: Start: 11-30-2024 End: 11-30-[address] Tylor Craven MD -Laboratory, [facility] Start: 11-30-2024 End: 11-30-2024 ambulatory Tylor Craven Facility:[facility] Start: 11-14-2024 End: 11-14-2024 ambulatory TYLOR CRAVEN Facility:[facility] Start: 11-14-2024 End: 11-14-2024 Patient encounter procedure Aldo Morillo APRN.FNP Work Phone: [facility] Comment on above: Pharyngitis, unspeci fied etiology (Primary Dx); Rhinosinusitis Procedures Date Procedure Procedure Detail Performing Clinician Start: 11-30-2024 Hep[address] C antibody measurement Dr. Tylor Craven MD Work Phone: Comment on above: Reactive: Presumptiv e evidence of antibodies to HCV. Follow CDC recommendations for supplemental testing.Non-Reactive: Antibodies to HCV were not detected; does not exclude the possibility of exposure to HCVReactive Results are presumptive evidence of antibodies to HCV. Follow CDC recommendations for supplemental testing.Order confirmation testing: HCV Quant by PCR testing - HCVPCR #[id number] Non Reactive: < 0.8 Equivocal: >/= 0.8 to < 1.0 Reactive: >/= 1.0The CDC requires that a reactive/equivocal HCV antibody result be sent out for confirmation. HCV Quant by PCR testing. Start: 11-30-2024 Urnls dip stick/tabl et reagent auto microscopy Dr. Tylor Craven MD Work Phone: Start: 11-14-2024 STREP A MOLECULAR (POC) Aldo Morlilo APRN.FNP Work Phone: Plan of Treatment Date Care Activity Detail Author Start: 06-05-2024 Covid-19 Vaccine ( season) Covid-19 Vaccine ( season) [facility] Start: 06-05-2024 Influenza vaccination Influenza Vacc ine (#1) [facility] Start: 2019 Lipid panel Lipid Screening [facility] Start: 03-23-2013 Urine microalbumin profile DTa P,Tdap,Td Vaccine (7 - Tdap) [facility] Start: 2002 Anxiety Screening Anxiety Screening [facility] Start: 2002 Depression Screening Depression Scre ening [facility] Start: 2002 Hepatitis C screening Hepatitis C Sc reening [facility] Start: 2002 HIV screening HIV Screening [facility] Immunizations Immunization Date Immunization Notes Care Provider Bandar woodward 03-23-2003 diphtheria and tetan us toxoids, adsorbed for pediatric use 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.FNP Work Phone: [facility] 03-23-2003 meningococcal polysaccharide vaccine (MPSV4) 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.FNP Work Phone: [facility] 04-19-1998 diphtheria, tetanus toxoids and pertussis vaccine 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.FNP Work Phone: [facility] 04-05-1998 hepatitis B vaccine, pediatric or pediatric/adolescent dosage 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.FNP Work Phone: [facility] 10-06-1997 hepatitis B vaccine, pediatric or pediatric/adolescent dosage 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.FNP Work Phone: [facility] 05-02-1997 hepatitis B vaccine, pediatric or pediatric/adolescent dosage 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.FNP Work Phone: [facility] 05-02-1997 measles, mumps and rubella virus vaccine 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.FNP Work Phone: [facility] 05-22-1987 diphtheria, tetanus toxoids and pertussis vaccine 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.FNP Work Phone: [facility] 05-22-1987 trivalent poliovirus vaccine, live, oral 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.[facility] Work Phone: [facility] 12-04-1986 haemophilus influenz ae type b vaccine, conjugate unspecified formulation 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.FNP Work Phone: [facility] 02-23-1986 measles, mumps and rubella virus vaccine 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.FNP Work Phone: [facility] 06-01-1985 diphtheria, tetanus toxoids and pertussis vaccine 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.FNP Work Phone: [facility] 04-12-1985 diphtheria, tetanus toxoids and pertussis vaccine 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.[facility] Work Phone: [facility] 04-12-1985 trivalent poliovirus vaccine, live, oral 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.[facility] Work Phone: [facility] 03-01-1985 trivalent poliovirus vaccine, live, oral 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.[facility] Work Phone: [facility] 01-20-1985 diphtheria, tetanus toxoids and pertussis vaccine 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.[facility] Work Phone: [facility] 01-20-1985 trivalent poliovirus vaccine, live, oral 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.[facility] Work Phone: [facility] Payers Date Payer Category Payer Self-pay 2014 [facility] Health [facility] [id number] 2014 Unknown [id number] Unknown [id number] Unknown [id number] Unknown [id number] Social History Date Type Detail [facility] Start: 03-05-2015 Alcoholic beverage intake Current non-drinker of alcohol (finding) [facility] Start: 1984 Sex assigned at Not on file [facility] Gender identity Not on file [facility] Tobacco smoking stat [facility] Unknown if ever smoked [facility] Work Phone: Start: 12-14-2024 Sex Male (finding) [facility] Start: 1985 Sex Assigned At Male [facility] Functional Status Date Assessment Result Facility 03-05-2015 Are you deaf, or do you have serious difficulty hearing No 03/05/2015 8:33 AM Raquel Capellan MA No [facility] 03-05-2015 Are you blind, or do you have serious difficulty seeing, even when wearing glasses No 03/05/2015 8:33 AM Raquel Capellan MA No [facility] 03-05-2015 Do you have serious difficulty walking or climbing stairs No 03/05/2015 8:33 AM Raquel Capellan MA No [facility] 03-05-2015 Do you have difficul ty dressing or bathing No 03/05/2015 8:33 AM Raquel Capellan MA No [facility] 03-05-2015 Because of a physica l, mental, or emotional condition, do you have difficulty doing errands alone such as visiting a physician's office or shopping No 03/05/2015 8:33 AM EDT Raquel Bo MA No [facility] Mental Status Date Assessment Result Facility 03-05-2015 Because of a physica l, mental, or emotional condition, do you have serious difficulty concentrating, remembering, or making decisions No 03/05/2015 8:33 AM EDT Raquel Bo MA No [facility] Progress note 11-14-2024 Note Date & Type Note Facility 11-14-2024 Note HNO ID: [id number] Author: ALDO MORILLO APRN.FNP Service: ? Author Type: Nurse Practitioner Type: Progress Notes Filed: 11/14/2024 13:23 Note Text: This note was created using [employer]. Subjective Shemar Boyce is a 39 year old male. 39 year old male with no PMH presents for illness Acute onset one week ago +sore throat +cough +non productive +nasal congestion +sinus pressure +sinus pain +fever/chills (first day or two) Denies dyspnea Denies CP Denies SOB Denies dyspnea Denies tobacco usage Has used Mucinex The history is provided by the patient. No speech language assistant was used. Cough This is a new problem. The current episode started more than 1 week ago. The problem occurs constantly. The problem has not changed since onset.The cough is Non-productive. There has been no fever. Associated symptoms include chills, weight loss, ear congestion, ear pain, headaches, rhinorrhea and sore throat. Pertinent negatives include no chest pain, no sweats, no myalgias, no shortness of breath, no wheezing and no eye redness. He has tried decongestants for the symptoms. The treatment provided no relief. He is not a smoker. His past medical history does not include bronchitis, pneumonia, bronchiectasis, COPD, emphysema or asthma. Sinus Problem This is a new problem. The current episode started in the past 7 days. The problem occurs constantly. The problem has been gradually worsening. Associated symptoms include chills, congestion, coughing, fatigue, a fever, headaches, a sore throat and swollen glands. Pertinent negatives include no abdominal pain, anorexia, arthralgias, change in bowel habit, chest pain, diaphoresis, joint swelling, myalgias, nausea, neck pain, numbness, rash, urinary symptoms, vertigo, visual change, vomiting or weakness. Nothing aggravates the symptoms. Treatments tried: mucinex. The treatment provided no relief. No past medical history on file. No past surgical history on file. ALLERGIES Patient has no known allergies. MEDICATIONS amoxicillin-clavulanate potassium (AUGMENTIN) 875-125 mg per tablet Take 1 tablet by mouth two times a day for 7 days. ciprofloxacin-dexamethasone (CIPRODEX) otic suspension Use 4 Drops in the right ear twice daily. (Patient not taking: Reported on 11/14/2024) No family history on file. Social History Tobacco Use Smoking status: Never Substance Use Topics Alcohol use: No Drug use: No Review of Systems Constitutional: Positive for chills, fatigue, fever and weight loss. Negative for diaphoresis. HENT: Positive for congestion, ear pain, postnasal drip, rhinorrhea, sinus pressure, sinus pain and sore throat. Eyes: Negative for discharge, redness and itching. Respiratory: Positive for cough. Negative for shortness of breath and wheezing. Cardiovascular: Negative for chest pain. Gastrointestinal: Negative for abdominal pain, anorexia, change in bowel habit, nausea and vomiting. Musculoskeletal: Negative for arthralgias, joint swelling, myalgias and neck pain. Skin: Negative for rash. Allergic/Immunologic: Negative for environmental allergies, food allergies and immunocompromised state. Neurological: Positive for headaches. Negative for dizziness, vertigo, facial asymmetry, weakness and numbness. Hematological: Negative for adenopathy. Does not bruise/bleed easily. Psychiatric/Behavioral: Negative for agitation and behavioral problems. Objective BP 148/92 Pulse 76 Temp 36.7 ?C (98.1 ?F) Resp 18 Wt (!) 171 kg (376 lb 15.8 oz) SpO2 96% Physical Exam Vitals and nursing note reviewed. Constitutional: General: He is not in acute distress. Appearance: Normal appearance. He is not ill-appearing, toxic-appearing or diaphoretic. HENT: Head: Normocephalic and atraumatic. Right Ear: External ear normal. Left Ear: External ear normal. Ears: Comments: Bilateral moderate serous fluid noted Nose: Congestion present. No rhinorrhea. Mouth/Throat: Mouth: Mucous membranes are moist. Pharynx: Oropharynx is clear. Posterior oropharyngeal erythema (2 + enlarged bilateral. Uvula midline) present. No oropharyngeal exudate. Eyes: General: Right eye: No discharge. Left eye: No discharge. Extraocular Movements: Extraocular movements intact. Conjunctiva/sclera: Conjunctivae normal. Pupils: Pupils are equal, round, and reactive to light. Cardiovascular: Rate and Rhythm: Normal rate and regular rhythm. Pulses: Normal pulses. Heart sounds: Normal heart sounds. No murmur heard. No friction rub. No gallop. Pulmonary: Effort: Pulmonary effort is normal. No respiratory distress. Breath sounds: Normal breath sounds. No stridor. No wheezing, rhonchi or rales. Chest: Chest wall: No tenderness. Abdominal: General: Abdomen is flat. There is no distension. Palpations: Abdomen is soft. There is no mass. Tenderness: There is no abdominal tenderness. There is no guarding o (more content not included)... [facility] History of Present illness Narrative 11-14-2024 Aldo Morillo APRN.[facility] - 11/14/2024 1:12 PM EST Note Date & Type Note Facility 11-14-2024 History of Presen t illness Narrative This note was created using [employer]. Subjective Shemar Boyce is a 39 year old male. 39 year old male with no PMH presents for illness Acute onset one week ago +sore throat +cough +non productive +nasal congestion +sinus pressure +sinus pain +fever/chills (first day or two) Denies dyspnea Denies CP Denies SOB Denies dyspnea Denies tobacco usage Has used Mucinex The history is provided by the patient. No speech language assistant was used. Cough This is a new problem. The current episode started more than 1 week ago. The problem occurs constantly. The problem has not changed since onset.The cough is Non-productive. There has been no fever. Associated symptoms include chills, weight loss, ear congestion, ear pain, headaches, rhinorrhea and sore throat. Pertinent negatives include no chest pain, no sweats, no myalgias, no shortness of breath, no wheezing and no eye redness. He has tried decongestants for the symptoms. The treatment provided no relief. He is not a smoker. His past medical history does not include bronchitis, pneumonia, bronchiectasis, COPD, emphysema or asthma. Sinus Problem This is a new problem. The current episode started in the past 7 days. The problem occurs constantly. The problem has been gradually worsening. Associated symptoms include chills, congestion, coughing, fatigue, a fever, headaches, a sore throat and swollen glands. Pertinent negatives include no abdominal pain, anorexia, arthralgias, change in bowel habit, chest pain, diaphoresis, joint swelling, myalgias, nausea, neck pain, numbness, rash, urinary symptoms, vertigo, visual change, vomiting or weakness. Nothing aggravates the symptoms. Treatments tried: mucinex. The treatment provided no relief. No past medical history on file. No past surgical history on file. ALLERGIES Patient has no known allergies. MEDICATIONS amoxicillin-clavulanate potassium (AUGMENTIN) 875-125 mg per tablet Take 1 tablet by mouth two times a day for 7 days. ciprofloxacin-dexamethasone (CIPRODEX) otic suspension Use 4 Drops in the right ear twice daily. (Patient not taking: Reported on 11/14/2024) No family history on file. Social History Tobacco Use Smoking status: Never Substance Use Topics Alcohol use: No Drug use: No Review of Systems Constitutional: Positive for chills, fatigue, fever and weight loss. Negative for diaphoresis. HENT: Positive for congestion, ear pain, postnasal drip, rhinorrhea, sinus pressure, sinus pain and sore throat. Eyes: Negative for discharge, redness and itching. Respiratory: Positive for cough. Negative for shortness of breath and wheezing. Cardiovascular: Negative for chest pain. Gastrointestinal: Negative for abdominal pain, anorexia, change in bowel habit, nausea and vomiting. Musculoskeletal: Negative for arthralgias, joint swelling, myalgias and neck pain. Skin: Negative for rash. Allergic/Immunologic: Negative for environmental allergies, food allergies and immunocompromised state. Neurological: Positive for headaches. Negative for dizziness, vertigo, facial asymmetry, weakness and numbness. Hematological: Negative for adenopathy. Does not bruise/bleed easily. Psychiatric/Behavioral: Negative for agitation and behavioral problems. Objective BP 148/92 Pulse 76 Temp 36.7 C (98.1 F) Resp 18 Wt (!) 171 kg (376 lb 15.8 oz) SpO2 96% Physical Exam Vitals and nursing note reviewed. Constitutional: General: He is not in acute distress. Appearance: Normal appearance. He is not ill-appearing, toxic-appearing or diaphoretic. HENT: Head: Normocephalic and atraumatic. Right Ear: External ear normal. Left Ear: External ear normal. Ears: Comments: Bilateral moderate serous fluid noted Nose: Congestion present. No rhinorrhea. Mouth/Throat: Mouth: Mucous membranes are moist. Pharynx: Oropharynx is clear. Posterior oropharyngeal erythema (2 + enlarged bilateral. Uvula midline) present. No oropharyngeal exudate. Eyes: General: Right eye: No discharge. Left eye: No discharge. Extraocular Movements: Extraocular movements intact. Conjunctiva/sclera: Conjunctivae normal. Pupils: Pupils are equal, round, and reactive to light. Cardiovascular: Rate and Rhythm: Normal rate and regular rhythm. Pulses: Normal pulses. Heart sounds: Normal heart sounds. No murmur heard. No friction rub. No gallop. Pulmonary: Effort: Pulmonary effort is normal. No respiratory distress. Breath sounds: Normal breath sounds. No stridor. No wheezing, rhonchi or rales. Chest: Chest wall: No tenderness. Abdominal: General: Abdomen is flat. There is no distension. Palpations: Abdomen is soft. There is no mass. Tenderness: There is no abdominal tenderness. There is no guarding or rebound. Hernia: No hernia is present. Musculoskeletal: General: No swelling, tenderness, deformity or signs of injury. Normal range of motion. Cervical back: Normal range of motion and neck supple. No rigidity or tenderness. Right lower leg: No edema. Left lower leg: No edema. Lymphadenopathy: Cervical: Cervical adenopathy present. Skin: General: Skin is warm and dry. Capillary Refill: Capillary refill takes less than 2 seconds. Coloration: Skin is not jaundiced or pale. Findings: No bruising, lesion or rash. Neurological: General: No focal deficit present. Mental Status: He is alert and oriented to person, place, and time. Cranial Nerves: No cranial nerve deficit. Sensory: No sensory deficit. Motor: No weakness. Coordination: Coordination normal. Gait: Gait normal. Deep Tendon Reflexes: Reflexes normal. Psychiatric: Mood and Affect: Mood normal. Behavior: Behavior normal. Thought Content: Thought content normal. Assessment and Plan ASSESSMENT/PLAN: 1. Pharyngitis, unspecified etiology - ICD9: 462, ICD10: J02.9 (primary diagnosis) - suspect viral - Rapid Strep negative in the office today - Group A strep molecular testing negative - Discussed supportive care treatment with fluids, rest and analgesia. - The patient may also use OTC cough and cold meds as needed, warm salt water gargles, throat lozenges and/or OTC throat spray as needed, and nasal saline gtts and suction prn. - Contagious dz precautions discussed- including considered contagious until on antibiotics for 24 hours - The patient should follow up in 3-5 days if symptoms persist or worsen - Call back if drooling, increased temperature, symptoms of dehydration and/or still sick in one week - STREP A MOLECULAR (POC) 2. Rhinosinusitis - ICD9: 473.9, ICD10: J32.9 - Will begin treatment with as per antibiotic as written, see orders - The patient should also be given OTC cough and cold meds as needed, warm salt water gargles, throat lozenges and/or OTC throat spray as needed, and nasal saline gtts and suction prn for the first 5-7 days of treatment. - Supportive care with plenty of fluids, rest, and analgesia prn. - Follow up in 3-5 days if symptoms persist or worsen. Aldo Morillo APRN.[facility] documented in this encounter [facility] Evaluation note Note Date & Type Note Facility Evaluation note Diagnosis Pharyngitis, unspecified etiology- Primary Rhinosinusitis Unspecified sinusitis (chronic) documented in this encounter [facility] Evaluation note Note Date & Type Note Facility Evaluation note No assessment information availa ble [facility] Work Phone: Reason for referral (narrative) Note Date & Type Note Facility Reason for referral (narrative) No reason for referral information available [facility] Work Phone: Summary Purpose Family History No Family History Records FoundNo Family History Records Found Advance Directives No Advanced Directives Records FoundNo Advanced Directives Records Found Additional Source Comments Source Comments (unrecognize d section and content) In the event this informatio n is protected by the Federal Confidentiality of Alcohol and Drug Abuse Patient Records regulations: The Federal rules restrict any use of the information to criminally investigate or prosecute any alcohol or drug abuse patient.[facility] Reason for Visit (unrecogniz ed section and content) Reason Comments Cough sore throat and head ache x 1 week Care Teams (unrecognized sec tion and content) 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 Tylor Craven MD Primary Care Provider Active Team Status: Inactive Member Role Status Dates Dr. Tylor Craven MD Primary Care Provider Active Start: November 30, 2024 End: November 30, 2024 Dr. Tylor Craven MD Attending Provider Active Start: November 30, 2024 End: November 30, 2024 Dr. Tylor Craven MD Referring Provider Active Start: November 30, 2024 End: November 30, 2024 Team Status: Inactive Member Role Status Dates Dr. Tylor Craven MD Primary Care Provider Active Start: March 01, 2025 End: March 01, 2025 Dr. Tylor Craven MD Attending Provider Active Start: March 01, 2025 End: March 01, 2025 Dr. Tylor Craven MD Referring Provider Active Start: March 01, 2025 End: March 01, 2025 Team Status: Active Member Role/Relationship Status Dates Dr. Tylor Craven MD Primary care physician Active Team Status: Inactive Member Role/Relationship Status Dates Dr. Tylor Craven MD Primary care physician Active Start: June 28, 2025 End: June 28, 2025 Dr. Tylor Craven MD Attending physician Active Start: June 28, 2025 End: June 28, 2025 (unrecognized sect ion and content) No Status Records FoundNo Status Records Found INFORMATION SOURCE (unrecogn ized section and content) DATE CREATED AUTHOR 11/16/2024 [facility] DATE CREATED AUTHOR AUTHOR'S BRANDON PENA 08/05/2025 [facility] Goals (unrecognized section and content) Goals may be documented in a n alternate sectionGoals may be documented in an alternate sectionGoals may be documented in an alternate section FOR RECORDS PERTAINING TO PATIENTS WHO ARE OR HAVE BEEN ENROLLED IN A CHEMICAL DEPENDENCY/SUBSTANCEABUSE PROGRAM, SOME INFORMATION MAY BE OMITTED. This clinical summary was aggregated from multiple sources. Caution should be exercised in using it in the provision of clinical care. This summary normalizes information from multiple sources, and as a consequence, information in this document may materially change the coding, format and clinical context of patient data. In addition, data may be omitted in some cases. CLINICAL DECISIONS SHOULD BE BASED ON THE PRIMARY CLINICAL RECORDS. [facility] [employer] provides no warranty or guarantee of the accuracy or completeness of information in this document.
[2025-09-26 15:15] LABS: Potassium 3.3 mmol/L (3.5-5.1)
== END | disposition home or self-care (01) ==
LOC: MTLAB 13:29
PROVIDERS: PCP Family Medicine; Referring Provider Family Medicine; Visit Provider Family Medicine
DX: I10 Essential (primary) hypertension (principal)
CPT/HCPCS: 36415; 84132